=== PATIENT | male | born 1955 | race Caucasian/White ===

== ENCOUNTER 2020-02-16 15:50 | Inpatient (IN) | payer MEDICARE, OTHER, SELFPAY ==
[2020-02-16] VITALS (8 sets, daily range): BP systolic 93–123; BP diastolic 48–72; PULSE 93–101; RESP 18–22; TEMP 36.6–39.5; O2SAT 96–100; BMI 39.4
--- NOTE | ~2020-02-16 | XR_ITS ---
EXAMINATION: XR foot RT min 3V EXAM DATE: 02/16/2020 17:14 INDICATION: Wound on foot. Fever. TECHNIQUE: 3 projections of the right foot. Comparison is made to prior examination from 04/10/2019. FINDINGS: Again there is extensive mid and hind right foot neuropathic changes, Charcot's joint. The re is associated pes planus. There is large ulceration seen along the volar aspect of the foot. There is no osseous erosion of the undersurface of the mid foot to specifically suggest osteomyelitis. The re are no acute fractures identified. No radiopaque foreign bodies identified. IMPRESSION: 1. Right foot neuropathic joint. 2. Large ulceration. No osseous erosion to specifically suggest osteomyelitis. Reviewed, dictated and finalized at location A.
--- NOTE | 2020-02-16 16:58 | ED.EXTPRO ---
HPI - Extremity Problem General Chief complaint: Extremity Injury, Lower Stated complaint: possible cellulitis right lower foot Time Seen by Provider: 02/16/20 16:24 Source: patient Mode of arrival: ambulatory Limitations: no limitations History of Present Illness HPI Narrative: Patient is a 64-year-old male with history of diabetes and chronic plantar surface wound to the right foot that is been present for approximately 10 years. Patient reports onset of fever approximately 1-1/2 weeks ago. Patient has continued to have intermittent fever as high as 102 and 103 over this weekend. Patient notes erythema of the right foot and ankle. Patient has prior history of infection of this wound. He is chronically followed by a sorting and folding supervisor for his wound as well. Patient denies any cough or shortness of breath. MD Complaint: other (Right foot wound infection) Associated symptoms: fever Related Data Home Medications Medication Instructions Recorded Confirmed amlodipine BID 02/16/20 carvedilol BID 02/16/20 insulin glargine [Lantus U-100 35 unit SUBCUT HS 02/16/20 Insulin] sitagliptin-metformin [Janumet] tablet BID 02/16/20 valsartan-hydrochlorothiazide tablet DAILY 02/16/20 Allergies Allergy/AdvReac Type Severity Reaction Status Date / Time No Known Allergies Allergy Verified 02/16/20 16:47 Review of Systems Review of Systems: All systems reviewed & are unremarkable except as noted in HPI and below Constitutional: Constitutional: Reports fever(s) Respiratory: Respiratory: Denies cough and Denies dyspnea Gastrointestinal: Gastrointestinal: Denies nausea and Denies vomiting PMFSH Past Medical History Medical History Anemia of chronic disease Charcot foot due to diabetes mellitus Chronic wound of extremity CVA (cerebral vascular accident) Diabetic peripheral neuropathy Hepatitis C Hypertension Osteoarthritis Osteomyelitis Type 2 diabetes mellitus Surgical History Surgical History History of cataract surgery History of cholecystectomy History of fusion of cervical spine History of laparoscopic adjustable gastric banding History of total right hip replacement Family History Family History (Updated 10/30/17 @ 13:07 by DOCTOR UNKNOWN) Father Family history of lung cancer Other Cerebrovascular accident Diabetes mellitus Family history of allergic disorder Family history of arthritis Family history of cardiovascular disease Family history of kidney disease Family history of malignant neoplasm Hypertension Social History Social History Smoking status: Never smoker Alcohol intake: current Exam Const: General: cooperative, no acute distress and alert Nutritional Appearance: obese morbidly obese Orientation/consciousness: patient oriented x3 Limitations: no limitations HENMT: Mouth: Yes lip normal and Yes moist mucous membranes Resp: Effort & Inspection: normal respiratory effort Auscultation: clear to auscultation bilaterally Cardio: Rate: regular rate Rhythm: regular rhythm GI: GI Palp: Yes Soft to palpation and No Tenderness to palpation present (GI) Auscultation: normal bowel sounds Skin: General skin exam: normal color Wounds: wounds noted ulceration right plantar foot size (4 x 4 cm) and with surrounding erythema (Extending up right ankle) Neuro: General: patient oriented x3 Cognition (Neuro): normal cognition Speech: normal speech Extrem: General: normal to inspection, full ROM and no clubbing, cyanosis or edema Psych: Mental Status: mental status grossly normal Affect: normal affect Attitude: cooperative Course Course Emergency Course: Patient meeting criteria for sepsis. No evidence of shock. Patient hydrated with IV fluids in the emergency department and started on broad-spectrum IV ant
[2020-02-16 17:34] LABS: Hematocrit 31.2 % (42.0-52.0); Hemoglobin 10.5 g/dL (14.0-18.0); Mean Corpuscular HGB Conc 33.7 g/dl (32-36); Mean Corpuscular Hemoglobin 26.4 pg (26-34); Mean Corpuscular Volume 78.4 fl (80-100); Mean Platelet Volume 9.6 fl (7.4-10.4); Platelet Count Result 241 k/mm3 (150-375); Red Blood Count 3.98 M/mm3 (4.6-6.20); Red Cell Distribution Width 15.1 % (11.5-14.5); White Blood Count 16.5 K/mm3 (4.5-10.0)
[2020-02-16 17:44] LABS: Lactic Acid Reflex 2.4 mmol/L (0.7-2.1)
[2020-02-16 17:50] LABS: Alanine Aminotransferase 18 U/L (4-50); Albumin Level 3.5 g/dL (3.5-5.1); Alkaline Phosphatase 117 U/L (38-126); Aspartate Amino Transferase 28 U/L (17-59); Bilirubin,Total 0.8 mg/dL (0.2-1.3); Blood Urea Nitrogen 41 mg/dL (9-20); Carbon Dioxide 21 mmol/L (22-30); Chloride 94 mmol/L (98-107); Estimated CRCL calculation 40 ml/min; Estimated Glomerular Filt Rate 29; Glucose 228 mg/dL (75-110); Potassium 4.4 mmol/L (3.4-5.0); Sodium 127 mmol/L (137-145)
[2020-02-16 17:59] LABS: Erythrocyte Sedimentation Rate 133 mm/hr (0-20)
[2020-02-16 18:09] LABS: Anisocytosis 2+ (NORMAL); Band Neutrophils Percent 16 % (0-6); Lymphocytes Absolute Manual 0.33 K/mm3 (1.1-4.5); Monocytes Absolute Manual 0.66 K/mm3 (0.1-0.90); Monocytes Percent Manual 4 % (3-9); Neutrophils Absolute Manual 15.51 K/mm3 (1.3-6.7); Neutrophils Percent Manual 78 % (46-73); Platelet Estimate Adequate (Adequate); Total Cells Counted 100
[2020-02-16 18:32] LABS: CRP 34.4 mg/dL (<1.0)
[2020-02-16] MEDS: SODIUM CHLORIDE 0.9% IV 1,000 ML 999 ML IV CONT ×2 (19:30→22:57)
--- NOTE | 2020-02-16 20:27 | PC.NURSE ---
danielar faxed at 1949. rn unable to take report at this time
[2020-02-16 20:31] LABS: Reflex Lactic Acid Yes or No Add Lactic
[2020-02-16] MEDS: SODIUM CHLORIDE 0.9% IV 1,000 ML 150 ML IV CONT (21:06)
--- NOTE | 2020-02-16 21:19 | ADMGEN ---
This patient, Mathew Benitez, was admitted to Medical Room 344-01. Patient/family oriented to hospital policies and general routines including ID bracelet, bed and alarms, visiting hours, pain management, procedures, bathroom and other care routines, personal items, smoking policy, room service/diet, and visiting hours. Valuables list has been completed. Information on how to activate the Rapid Response Team has been discussed. Patient/Family are encouraged to report perceived risks to care and to ask questions if they do not understand what they are told or what they should do.
[2020-02-16 21:21] LABS: Lactic Acid 3.2 mmol/L (0.7-2.1)
--- NOTE | 2020-02-16 21:30 | PM.IMHP ---
H&P: HPI History of Present Illness Chief complaint: Suspected cellulitis of right lower extremity. Narrative: Mathew Benitez is a pleasant 63-year-old male with insulin-dependent diabetes, Charcot neuropathy of the right foot with chronic wound, hypertension, and several other comorbidities who presented to the emergency department earlier this afternoon as he suspects that he has cellulitis of the right lower extremity. He has a chronic wound on the plantar aspect of his right foot that has been present for approximately 10 years time. He is followed by a local employee benefits specialist, Dr. Fernandez, and last saw him a couple of weeks ago and at that time it sounds as though he had some debridement of the wound. Over the past 1 week, unfortunately, he has not been feeling well with erythema and pain about the right foot, when he typically has no pain there due to neuropathy. He has also been running fever for almost a weeks time, with a T-max of 103?. Yesterday he outlined the area of erythema, and tells me that it expanded by 2 inches overnight and thus he came in for evaluation. He also mentions a decrease in appetite. He denies cold and flu-like symptoms. No chest pain, shortness of breath, or cough. He denies nausea, vomiting, and diarrhea. No dysuria. No significant highs or lows with regards to his glucose. Review of Systems Review of Systems: Narrative: Twelve systems were reviewed with pertinent positives and negatives as per HPI. Except as documented, all other systems were reviewed and are negative. [facility] Past Medical History Medical History (Updated 02/16/20 @ 22:18 by Chula Vega PA-C) Anemia of chronic disease Charcot foot due to diabetes mellitus Right foot. Chronic wound of extremity Chronic right plantar diabetic foot ulcer, under the care of Jordin Fernandez DPM. CVA (cerebral vascular accident) with mild gait disturbance. Diabetic peripheral neuropathy Hepatitis C Completed treatment in 2017. Hypertension Insulin dependent type 2 diabetes mellitus Osteoarthritis Osteomyelitis Surgical History Surgical History (Updated 02/16/20 @ 22:11 by Chula Vega PA-C) History of cataract surgery History of cholecystectomy For gangrenous cholecystitis an abscess in October 2017. History of fusion of cervical spine History of laparoscopic adjustable gastric banding 2004. History of skin graft to right foot wound. History of total right hip replacement Family History Family History Father Family history of lung cancer Other Diabetes mellitus Family history of allergic disorder Family history of cardiovascular disease Family history of malignant neoplasm Hypertension Social History Social History (Updated 02/16/20 @ 22:12 by Chula Vega PA-C) Social History: The patient lives in his own home in [place]. He is a lifelong nonsmoker and denies alcohol abuse. He smokes marijuana on occasion. He designates his sister, Kendal Martinez, and his son Nhan Benitez as his surrogate decision makers and he wishes to be a full code. Smoking status: Never smoker Second hand tobacco smoke exposure: Yes Alcohol intake: current Drinks per week: 4 Substance use: current Substance use type: marijuana Gender identity (if verbalized by the patient): Male Spiritual care concerns: No Agree to blood products: Yes Meds Home Medications and Allergies Home Medications Medication Instructions Recorded Confirmed Type amlodipine BID 02/16/20 History carvedilol BID 02/16/20 History insulin glargine [Lantus U-100 35 unit SUBCUT HS 02/16/20 History Insulin] insulin glargine [Lantus U-100 35 unit SUBCUT HS 02/16/20 02/16/20 History Insulin] sitagliptin-metformin [Janumet] 1 tablet PO BID 02/16/20 02/16/20 History valsartan-hydrochlorothiazide tablet DAILY 02/16/20 History Allergies Allergy/AdvReac Type Severit
[2020-02-16] MEDS: ACETAMINOPHEN 325 MG TABLET 650 MG PO (21:51)
[2020-02-16 22:00] LABS: Glucose Point of Care 241 (65-105)
--- NOTE | 2020-02-16 22:35 | PC.NURSE ---
Patient urinated on himself in bed and is currently refusing to let staff clean him up or change his linens. The importance of clean and dry bedding for proper skin care was explained to the patient but he continues to refuse and wants to stay in his wet/dirty underwear.
[2020-02-16 23:15] LABS: Creatine Kinase 371 U/L (55-170)
[2020-02-16] MEDS: INSULIN GLARGINE (*BKC) 100 UNITS/ML 35 UNITS SUB-Q (23:17)
[2020-02-16 23:18] LABS: Blood Urea Nitrogen 43 mg/dL (9-20); Carbon Dioxide 20 mmol/L (22-30); Chloride 94 mmol/L (98-107); Estimated CRCL calculation 45 ml/min; Estimated Glomerular Filt Rate 34; Glucose 246 mg/dL (75-110); Potassium 4.3 mmol/L (3.4-5.0); Sodium 125 mmol/L (137-145)
[2020-02-16 23:30] LABS: Hemoglobin A1C 6.8 % (<5.7)
[2020-02-17] MEDS: SODIUM CHLORIDE 0.9% IV 1,000 ML 999 ML IV CONT (00:10)
[2020-02-17 00:33] VITALS: TEMP 37.8
[2020-02-17 03:48] VITALS: TEMP 37.3
[2020-02-17 04:00] VITALS: BP 100/57; PULSE 88; RESP 20; TEMP 37.5; O2SAT 100
[2020-02-17 05:53] LABS: Blood Urea Nitrogen 46 mg/dL (9-20); Calcium 7.8 mg/dL (8.4-10.2); Carbon Dioxide 22 mmol/L (22-30); Chloride 97 mmol/L (98-107); Estimated CRCL calculation 50 ml/min; Estimated Glomerular Filt Rate 38; Glucose 223 mg/dL (75-110); Lactic Acid 1.2 mmol/L (0.7-2.1); Magnesium 1.6 mg/dL (1.6-2.3); Phosphorus 3.7 mg/dL (2.5-4.5); Potassium 4.1 mmol/L (3.4-5.0); Sodium 127 mmol/L (137-145)
[2020-02-17 05:55] LABS: Basophils Absolute Auto 0.1 K/mm3 (0.0-0.1); Basophils Percent Auto 0.4 % (0.2-1.2); Hematocrit 28.7 % (42.0-52.0); Hemoglobin 9.3 g/dL (14.0-18.0); Immature Granulocyte Absolute 0.24 K/mm3 (0.00-0.031); Immature Granulocyte Percent A 1.2 % (0-0.5); Lymphocytes Absolute Auto 0.57 K/mm3 (0.9-3.2); Lymphocytes Percent Auto 2.9 % (18.3-44.2); Mean Corpuscular HGB Conc 32.4 g/dl (32-36); Mean Corpuscular Hemoglobin 26.2 pg (26-34); Mean Corpuscular Volume 80.8 fl (80-100); Mean Platelet Volume 10.1 fl (7.4-10.4); Monocytes Absolute Auto 1.3 K/mm3 (0.1-0.6); Monocytes Percent Auto 6.6 % (2.6-8.5); Neutrophils Absolute Auto 17.7 K/mm3 (1.3-6.7); Neutrophils Percent Auto 88.9 % (45.5-73.1); Platelet Count Result 233 k/mm3 (150-375); Red Blood Count 3.55 M/mm3 (4.6-6.20); Red Cell Distribution Width 15.3 % (11.5-14.5); White Blood Count 19.9 K/mm3 (4.5-10.0)
[2020-02-17] MEDS: SODIUM CHLORIDE 0.9% IV 1,000 ML 150 ML IV CONT ×2 (06:31→16:15)
[2020-02-17 07:51] LABS: Add Urine Microscopic? YES; Amorphous Sediment Urine Few; Appearance Urine Cloudy (Clear); Bacteria Urine Trace /hpf; Bilirubin Urine Negative (Negative); Blood Urine Negative (Negative); Color Urine Amber (Yellow); Glucose Urine UA 1+ mg/dL (Negative); Ketones Urine Trace mg/dL (Negative); Leukocyte Esterase Ur Trace LEU/UL (Negative); Mucus Urine Rare /lpf; Nitrate Urine Negative (Negative); Protein Urine 1+ mg/dL (Negative); Specific Grav Ur 1.018 (1.001-1.035); Squamous Epithelial Cell Urine Occasional /hpf (Few); WBC Urine 0-3 /hpf
[2020-02-17 07:57] LABS: Glucose Point of Care 237 (65-105)
[2020-02-17] MEDS: INSULIN ASPART (*BKC) 100 UNITS/ML SUB-Q ×3 (08:03→17:10)
[2020-02-17] MEDS: INSULIN GLARGINE (*BKC) 100 UNITS/ML 45 UNITS SUB-Q (08:04)
[2020-02-17] MEDS: ENOXAPARIN 40 MG/0.4 ML SYRINGE SUB-Q (08:07)
[2020-02-17] MEDS: SILVERGEL (ELTA) 45 ML 1 APPLIC TOPICAL (09:28)
[2020-02-17] MEDS: ACETAMINOPHEN 325 MG TABLET 650 MG PO (11:29)
[2020-02-17 11:42] LABS: Glucose Point of Care 237 (65-105)
[2020-02-17 14:00] VITALS: BP 140/87; PULSE 107; RESP 20; TEMP 37.1; O2SAT 95
--- NOTE | 2020-02-17 14:02 | PM.IMPN ---
Progress Note: A&P Assessment and Plan (1) Sepsis: Qualifiers: Sepsis acute organ dysfunction status: without acute organ dysfunction Sepsis type: sepsis due to unspecified organism Qualified Code(s): A41.9 - Sepsis, unspecified organism Code(s): A41.9 - Sepsis, unspecified organism Status: Acute Assessment and Plan: Criteria met on admission. Result of diabetic foot ulcer /cellulitis. Still with slight fever. WBC is slightly higher at 19.9 today. 1 of 2 blood cultures now growing Gram-positive coccobacilli. Preliminary wound culture with mixed annalise. Will continue IV vancomycin and imipenem per antibiotic stewardship recommendations. Will adjust once culture results are final if needed. Will continue to monitor. Continue IV fluids but decrease rate. 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 involvement without evidence of necrosis Code(s): E11.621 - Type 2 diabetes mellitus with foot ulcer; L97.509 - Non-pressure chronic ulcer of other part of unspecified foot with unspecified severity Status: Acute Assessment and Plan: No evidence of osteomyelitis on x-ray. Will continue current wound care. Await final wound cultures. If not improving, will consult his regular senior accounts payable specialist, Dr. Fernandez. Continue IV antibiotics as noted above. (3) Cellulitis of right foot: Code(s): L03.115 - Cellulitis of right lower limb Status: Acute Assessment and Plan: Despite WBC Azar, appears to be improving otherwise. Continue IV antibiotics as noted above. Will adjust if needed. (4) Insulin dependent type 2 diabetes mellitus: Code(s): E11.9 - Type 2 diabetes mellitus without complications; Z79.4 - senior living (current) use of insulin Status: Acute Assessment and Plan: Hemoglobin A1c 6.8. Glucose reviewed on 02/17/2020 with readings in 200s. Probably elevated due to cellulitis. Will advance evening Lantus today. Continue sliding scale insulin. Will continue to monitor and adjust treatment as needed. (5) Acute kidney injury: Code(s): N17.9 - Acute kidney failure, unspecified Status: Acute Assessment and Plan: Possibly result of dehydration and/or ATN from sepsis. Creatinine is improved to 1.80 today. Continue IV fluids but decrease rate as noted above. Will continue to monitor. (6) Hyponatremia: Code(s): E87.1 - Hypo-osmolality and hyponatremia Status: Acute Assessment and Plan: Sodium level still low but stable at 127. Will continue to monitor with home diuretic on hold. (7) Hypertension: Qualifiers: Hypertension type: essential hypertension Qualified Code(s): I10 - Essential (primary) hypertension Code(s): I10 - Essential (primary) hypertension Status: Acute Assessment and Plan: Blood pressure reviewed on 02/17/2020 and now improved. Will continue to hold home amlodipine, carvedilol, valsartan and HCTZ today. Reassess tomorrow. May need to restart some of his medications tomorrow avoiding nephrotoxic agents. Continue to monitor. (8) DVT prophylaxis: Code(s): Z29.9 - Encounter for prophylactic measures, unspecified Status: Acute Assessment and Plan: Lovenox. Time Spent With Patient Time with patient: 15 - 25 minutes Subjective Date/time seen: 02/17/20 14:02 Interval history: Date of Service: 02/17/2020. Admitted with sepsis, right foot diabetic ulcer. Does have pain in right foot. No nausea or vomiting. No chest pain. No shortness of breath. Review of Systems Constitutional: Constitutional: Reports fever(s) ENT: Denies dysphag
[2020-02-17 17:07] LABS: Glucose Point of Care 205 (65-105)
[2020-02-17 20:18] VITALS: BP 119/57; PULSE 80; RESP 18; TEMP 36.8; O2SAT 95
[2020-02-17] MEDS: INSULIN GLARGINE (*BKC) 100 UNITS/ML 35 UNITS SUB-Q (20:21)
[2020-02-17 20:24] LABS: Glucose Point of Care 227 (65-105)
[2020-02-18] MEDS: SODIUM CHLORIDE 0.9% IV 1,000 ML 100 ML IV CONT ×2 (02:23→16:32)
[2020-02-18 05:49] LABS: Blood Urea Nitrogen 37 mg/dL (9-20); Calcium 7.9 mg/dL (8.4-10.2); Carbon Dioxide 23 mmol/L (22-30); Chloride 100 mmol/L (98-107); Estimated CRCL calculation 74 ml/min; Estimated Glomerular Filt Rate > 60; Glucose 195 mg/dL (75-110); Potassium 3.4 mmol/L (3.4-5.0); Sodium 130 mmol/L (137-145)
[2020-02-18 05:58] LABS: Hematocrit 28.1 % (42.0-52.0); Hemoglobin 9.2 g/dL (14.0-18.0); Mean Corpuscular HGB Conc 32.7 g/dl (32-36); Mean Corpuscular Hemoglobin 25.7 pg (26-34); Mean Corpuscular Volume 78.5 fl (80-100); Mean Platelet Volume 9.9 fl (7.4-10.4); Platelet Count Result 213 k/mm3 (150-375); Red Blood Count 3.58 M/mm3 (4.6-6.20); Red Cell Distribution Width 15.4 % (11.5-14.5); White Blood Count 11.3 K/mm3 (4.5-10.0)
[2020-02-18 06:00] VITALS: BP 129/59; PULSE 80; RESP 18; TEMP 36.3; O2SAT 97
[2020-02-18] MEDS: ENOXAPARIN 40 MG/0.4 ML SYRINGE SUB-Q (07:32)
[2020-02-18] MEDS: INSULIN ASPART (*BKC) 100 UNITS/ML SUB-Q ×2 (07:32→11:38)
[2020-02-18 07:39] VITALS: PULSE 80; RESP 18; O2SAT 97
[2020-02-18 07:46] LABS: Glucose Point of Care 210 (65-105)
[2020-02-18] MEDS: INSULIN GLARGINE (*BKC) 100 UNITS/ML 45 UNITS SUB-Q ×2 (08:30→21:37)
[2020-02-18] MEDS: SILVERGEL (ELTA) 45 ML 1 APPLIC TOPICAL (10:22)
[2020-02-18 11:32] LABS: Glucose Point of Care 260 (65-105)
--- NOTE | 2020-02-18 14:17 | PM.IMPN ---
Progress Note: A&P Assessment and Plan (1) Sepsis: Qualifiers: Sepsis acute organ dysfunction status: without acute organ dysfunction Sepsis type: sepsis due to unspecified organism Qualified Code(s): A41.9 - Sepsis, unspecified organism Code(s): A41.9 - Sepsis, unspecified organism Status: Acute Assessment and Plan: Criteria met on admission. Result of diabetic foot ulcer /cellulitis. No longer with fever. WBC has improved to 11.3 today. Blood cultures times to now positive for pasteurella multocida. Will consult infectious disease regarding guidance for antibiotic treatment. In the meantime, will continue IV vancomycin and imipenem. Continue IV fluids today but decrease rate again. Will continue to monitor. 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 involvement without evidence of necrosis Code(s): E11.621 - Type 2 diabetes mellitus with foot ulcer; L97.509 - Non-pressure chronic ulcer of other part of unspecified foot with unspecified severity Status: Acute Assessment and Plan: No evidence of osteomyelitis on x-ray. Will continue current wound care. Await final wound cultures. If not improving, will consult his regular rail washer, Dr. Fernandez. Continue IV antibiotics as noted above. (3) Cellulitis of right foot: Code(s): L03.115 - Cellulitis of right lower limb Status: Acute Assessment and Plan: Improving. Continue IV antibiotics as noted above. Will adjust if needed. (4) Insulin dependent type 2 diabetes mellitus: Code(s): E11.9 - Type 2 diabetes mellitus without complications; Z79.4 - middle or intermediate school principal (current) use of insulin Status: Acute Assessment and Plan: Hemoglobin A1c 6.8. Glucose reviewed on 02/18/2020 with readings mostly still in 200s with some below. Probably elevated due to cellulitis. Will advance evening Lantus again today. Continue same morning dose of Lantus today. Continue sliding scale insulin. Will continue to monitor and adjust treatment as needed. (5) Acute kidney injury: Code(s): N17.9 - Acute kidney failure, unspecified Status: Acute Assessment and Plan: Possibly result of dehydration and/or ATN from sepsis. Creatinine is improved to 1.20 today. Continue IV fluids but decrease rate as noted above. Will continue to monitor. (6) Hypertension: Qualifiers: Hypertension type: essential hypertension Qualified Code(s): I10 - Essential (primary) hypertension Code(s): I10 - Essential (primary) hypertension Status: Acute Assessment and Plan: Blood pressure reviewed on 02/18/2020 and now beginning to increase. Home amlodipine, carvedilol, valsartan and HCTZ have been on hold due to low blood pressure on admission. Will restart amlodipine and carvedilol but continue to hold valsartan and HCTZ. Will continue to monitor and adjust as needed. (7) Hyponatremia: Code(s): E87.1 - Hypo-osmolality and hyponatremia Status: Acute Assessment and Plan: Sodium level improved to 130 today. Will continue to monitor. (8) DVT prophylaxis: Code(s): Z29.9 - Encounter for prophylactic measures, unspecified Status: Acute Assessment and Plan: Lovenox. Time Spent With Patient Time with patient: 15 - 25 minutes Subjective Date/time seen: 02/18/20 14:17 Interval history: Date of Service: 02/18/2020. Admitted with sepsis, right foot diabetic ulcer. Sleeping but easily awakened. Does still have pain in right foot as well as left foot but has known neuropathy. Appetite better today. No nausea or vomiting. No chest pain. N
[2020-02-18 14:20] VITALS: BP 145/64; PULSE 87; RESP 18; TEMP 36.8; O2SAT 96
[2020-02-18 16:25] LABS: Glucose Point of Care 184 (65-105)
[2020-02-18 18:34] VITALS: PULSE 80
[2020-02-18] MEDS: carvediloL 25 MG TABLET PO (18:34)
[2020-02-18] MEDS: AMLODIPINE BESYLATE 5 MG TABLET PO (18:34)
[2020-02-18 21:06] VITALS: BP 131/71; PULSE 84; RESP 17; TEMP 37.3; O2SAT 97
[2020-02-18 22:54] LABS: Glucose Point of Care 283 (65-105)
[2020-02-19] VITALS (7 sets, daily range): BP systolic 134–136; BP diastolic 60–80; PULSE 72–81; RESP 18; TEMP 37.1–37.5; O2SAT 93–100
[2020-02-19] MEDS: SODIUM CHLORIDE 0.9% IV 1,000 ML 75 ML IV CONT (05:24)
[2020-02-19 06:37] LABS: Hematocrit 29.7 % (42.0-52.0); Hemoglobin 9.9 g/dL (14.0-18.0); Mean Corpuscular HGB Conc 33.3 g/dl (32-36); Mean Corpuscular Hemoglobin 26.2 pg (26-34); Mean Corpuscular Volume 78.6 fl (80-100); Mean Platelet Volume 9.3 fl (7.4-10.4); Platelet Count Result 253 k/mm3 (150-375); Red Blood Count 3.78 M/mm3 (4.6-6.20); Red Cell Distribution Width 15.5 % (11.5-14.5); White Blood Count 10.3 K/mm3 (4.5-10.0)
[2020-02-19 06:55] LABS: Blood Urea Nitrogen 22 mg/dL (9-20); Calcium 7.9 mg/dL (8.4-10.2); Carbon Dioxide 24 mmol/L (22-30); Chloride 102 mmol/L (98-107); Estimated CRCL calculation 100 ml/min; Estimated Glomerular Filt Rate > 60; Glucose 170 mg/dL (75-110); Potassium 3.4 mmol/L (3.4-5.0); Sodium 133 mmol/L (137-145)
[2020-02-19 08:08] LABS: Glucose Point of Care 167 (65-105)
[2020-02-19] MEDS: carvediloL 25 MG TABLET PO ×2 (09:45→16:50)
[2020-02-19] MEDS: AMLODIPINE BESYLATE 5 MG TABLET PO ×2 (09:45→16:51)
[2020-02-19] MEDS: ENOXAPARIN 40 MG/0.4 ML SYRINGE SUB-Q (09:46)
[2020-02-19] MEDS: INSULIN GLARGINE (*BKC) 100 UNITS/ML 45 UNITS SUB-Q ×2 (10:22→20:23)
[2020-02-19] MEDS: SILVERGEL (ELTA) 45 ML 1 APPLIC TOPICAL (10:24)
[2020-02-19 12:20] LABS: Glucose Point of Care 185 (65-105)
--- NOTE | 2020-02-19 13:49 | PM.IMPN ---
Progress Note: A&P Assessment and Plan (1) Sepsis: Qualifiers: Sepsis acute organ dysfunction status: without acute organ dysfunction Sepsis type: sepsis due to unspecified organism Qualified Code(s): A41.9 - Sepsis, unspecified organism Code(s): A41.9 - Sepsis, unspecified organism Status: Acute Assessment and Plan: Criteria met on admission. Result of diabetic foot ulcer /cellulitis. No fever at this point but still having chills. WBC slightly better at 10.3. Infectious Disease consulted as result of blood culture x 2 positive for pasteurella multocida. Wound culture also now growing pasteurella multocida. Remains on IV imipenem with IV vancomycin discontinued per ID. Will continue to monitor. 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 involvement without evidence of necrosis Code(s): E11.621 - Type 2 diabetes mellitus with foot ulcer; L97.509 - Non-pressure chronic ulcer of other part of unspecified foot with unspecified severity Status: Acute Assessment and Plan: No evidence of osteomyelitis on x-ray. Will continue current wound care. Final wound culture as noted above. Continue IV antibiotics. Does see Dr. Fernandez for podiatry as an outpatient. (3) Cellulitis of right foot: Code(s): L03.115 - Cellulitis of right lower limb Status: Acute Assessment and Plan: Has been improving. Continue IV imipenem as noted above. (4) Insulin dependent type 2 diabetes mellitus: Code(s): E11.9 - Type 2 diabetes mellitus without complications; Z79.4 - watermelon harvesting supervisor (current) use of insulin Status: Acute Assessment and Plan: Hemoglobin A1c 6.8. Glucose reviewed on 02/19/2020 with readings now staying below 200. Will continue current split dose of Lantus. Continue sliding scale insulin. Will continue to monitor and adjust treatment as needed. (5) Acute kidney injury: Code(s): N17.9 - Acute kidney failure, unspecified Status: Resolved Assessment and Plan: Result of dehydration and/or ATN from sepsis. Creatinine has now returned to normal at 0.90 today. Oral intake is adequate. Will discontinue IV fluids. Will continue to monitor. (6) Hypertension: Qualifiers: Hypertension type: essential hypertension Qualified Code(s): I10 - Essential (primary) hypertension Code(s): I10 - Essential (primary) hypertension Status: Acute Assessment and Plan: Blood pressure reviewed on 02/19/2020 and stable in normal range. Amlodipine and carvedilol restarted. Will also try restarting valsartan with creatinine normal. Will leave HCTZ on hold. Will continue to monitor and adjust treatment as needed. (7) Hyponatremia: Code(s): E87.1 - Hypo-osmolality and hyponatremia Status: Acute Assessment and Plan: Sodium level improved again up to 133 today. Will continue to monitor. (8) DVT prophylaxis: Code(s): Z29.9 - Encounter for prophylactic measures, unspecified Status: Acute Assessment and Plan: Lovenox. Time Spent With Patient Time with patient: 15 - 25 minutes Subjective Date/time seen: 02/19/20 13:49 Interval history: Date of Service: 02/19/2020. Admitted with sepsis, right foot diabetic ulcer. Patient awake this afternoon. Reports had a rough morning. Describes having chills as well as coughing as result of nausea. No chest pain. No shortness of breath. Right foot pain has improved. Reports always has edema in his right leg. Review of Systems Constitutional: Constitutional: Reports chills ENT: Denies dysphagia Cardiovascular: Cardiovascular: Den
[2020-02-19] MEDS: VALSARTAN 80 MG TABLET PO (15:37)
[2020-02-19 16:51] LABS: Glucose Point of Care 223 (65-105)
[2020-02-19] MEDS: INSULIN ASPART (*BKC) 100 UNITS/ML SUB-Q (16:52)
[2020-02-19 20:41] LABS: Glucose Point of Care 216 (65-105)
[2020-02-20] VITALS (7 sets, daily range): BP systolic 111–136; BP diastolic 58–72; PULSE 72–84; RESP 18–20; TEMP 36.7–37.8; O2SAT 95–97
[2020-02-20 06:13] LABS: Hematocrit 28.4 % (42.0-52.0); Hemoglobin 9.1 g/dL (14.0-18.0); Mean Corpuscular Hemoglobin 25.8 pg (26-34); Mean Corpuscular Volume 80.5 fl (80-100); Mean Platelet Volume 9.9 fl (7.4-10.4); Platelet Count Result 231 k/mm3 (150-375); Red Blood Count 3.53 M/mm3 (4.6-6.20); Red Cell Distribution Width 15.6 % (11.5-14.5)
[2020-02-20 06:25] LABS: Blood Urea Nitrogen 17 mg/dL (9-20); Carbon Dioxide 25 mmol/L (22-30); Chloride 101 mmol/L (98-107); Estimated CRCL calculation 110 ml/min; Estimated Glomerular Filt Rate > 60; Glucose 156 mg/dL (75-110); Sodium 133 mmol/L (137-145)
[2020-02-20 08:00] LABS: Glucose Point of Care 145 (65-105)
[2020-02-20] MEDS: carvediloL 25 MG TABLET PO ×2 (08:10→17:15)
[2020-02-20] MEDS: POTASSIUM CHLORIDE 20 MEQ TABLET 40 MEQ PO (08:10)
[2020-02-20] MEDS: AMLODIPINE BESYLATE 5 MG TABLET PO ×2 (08:11→17:15)
[2020-02-20] MEDS: VALSARTAN 80 MG TABLET PO (08:11)
[2020-02-20] MEDS: SILVERGEL (ELTA) 45 ML 1 APPLIC TOPICAL (08:12)
[2020-02-20] MEDS: ENOXAPARIN 40 MG/0.4 ML SYRINGE SUB-Q (09:17)
[2020-02-20] MEDS: INSULIN GLARGINE (*BKC) 100 UNITS/ML 45 UNITS SUB-Q ×2 (09:18→21:02)
--- NOTE | 2020-02-20 09:25 | WPDINFPN2 ---
Progress Note: A&P Assessment and Plan (1) Cellulitis of right foot: Code(s): L03.115 - Cellulitis of right lower limb Status: Acute Assessment and Plan: 1. Cellulitis of R foot with bacteremia and infection, due to pasturella. 2. Charcot foot, also (by his description) chronic osteomyelitis 3. DM REC Ampicillin #1 (antibiotic # 5), repeat CBC, and if no new events by tomorrow change to oral, through 02/28. F/U with [place] DPM Subjective Date/time seen: 02/20/20 09:25 Objective Data Vital Signs Vital Signs: Vital Signs - 24 hr 02/19/20 09:45 02/19/20 09:46 02/19/20 14:00 Temperature 37.1 C Pulse Rate 80 80 72 Respiratory Rate 18 18 Blood Pressure 136/80 Pulse Oximetry 96 100 02/19/20 16:50 02/19/20 20:00 02/19/20 22:00 Temperature 37.5 C Pulse Rate 76 81 81 Respiratory Rate 18 18 Blood Pressure 135/60 Pulse Oximetry 93 93 02/20/20 06:00 02/20/20 08:10 Temperature 36.7 C Pulse Rate 72 72 Respiratory Rate 20 Blood Pressure 134/63 Pulse Oximetry 95 Intake/Output Intake/Output: Intake & Output 02/17/20 02/18/20 02/19/20 02/20/20 23:59 23:59 23:59 23:59 Intake Total 6050 3375 4317 600 Output Total 1000 2200 2775 1000 Balance 5050 1175 1542 -400 Meds/Results Medications: Active Medications Generic Name Dose Route Start Last Admin Trade Name Freq PRN Reason Stop Dose Admin Acetaminophen 650 mg 02/16/20 18:11 02/17/20 11:29 Tylenol Tablet PO 650 mg Q4H PRN Administration Mild Pain (1-3) or Fever Hydrocodone Bitart/Acetaminophen 1 tab 02/16/20 23:09 02/19/20 20:22 Cory 5-325 Mg PO 1 tab Q6H PRN Administration Pain Rated 4-6 Amlodipine Besylate 5 mg 02/18/20 17:40 02/20/20 08:11 Norvasc PO 5 mg BID KJ Administration Carvedilol 25 mg 02/18/20 17:40 02/20/20 08:10 Coreg PO 25 mg BID KJ Administration Dextrose 12.5 gm 02/16/20 22:28 Dextrose 50% Syringe IV PUSH PRN PRN Hypoglycemia Protocol Enoxaparin Sodium 40 mg 02/17/20 09:00 02/19/20 09:46 Lovenox SUB-Q 40 mg DAILY KJ Administration Glucagon 1 mg 02/16/20 22:28 Glucagon For Inj IM PRN PRN Hypoglycemia Protocol Glucose 15 gm 02/16/20 22:28 Glutose 15 PO PRN PRN Hypoglycemia Protocol Imipenem/Cilastatin Sodium 500 mg in 100 mls @ 300 mls/hr 02/17/20 01:00 02/20/20 02:22 Primaxin 500 Mg/D5w 100 Ml IVPB Infused Q8H KJ Infusion Dextrose 1,000 mls @ 100 mls/hr 02/16/20 22:28 Dextrose 5% 1,000 Ml IVPB PRN PRN Hypoglycemia Protocol Insulin Aspart 4 - 8 units 02/17/20 08:00 02/20/20 08:05 Novolog SUB-Q Not Given TIDWM KJ Protocol Insulin Glargine 45 units 02/17/20 09:00 02/19/20 10:22 Lantus SUB-Q 45 units QAM KJ Administration Insulin Glargine 45 units 02/18/20 17:44 02/19/20 20:23 Lantus SUB-Q 45 units HS KJ Administration Silver Nitrate 1 applic 02/17/20 09:00 02/20/20 08:12 Silvergel TOPICAL 1 applic DAILY KJ Administration Valsartan 80 mg 02/19/20 09:00 02/20/20 08:11 Diovan PO 80 mg DAILY KJ Administration Radiology Results: ITS Impressions Foot X-Ray 02/16/20 17:18 IMPRESSION: 1. Right foot neuropathic joint. 2. Large ulceration. No osseous erosion to specifically suggest osteomyelitis. Labs Labs: Laboratory Results - last 24 hr 02/19/20 02/19/20 02/19/20 12:08 16:48 20:26 WBC RBC Hgb Hct MCV MCH MCHC RDW Plt Count MPV Sodium Potassium Chloride Carbon Dioxide BUN Creatinine Estim Creat Clear Calc Estimated GFR Glucose POC Capillary Glucose 185 H 223 H 216 H Calcium 02/20/20 02/20/20 02/20/20 05:46 05:46 07:54 WBC 8.0 RBC 3.53 L Hgb 9.1 L Hct 28.4 L MCV 80.5 MCH 25.8 L MCHC 32.0 RDW 15.6 H Plt Count 231 MPV 9.9
[2020-02-20 11:53] LABS: Glucose Point of Care 227 (65-105)
[2020-02-20] MEDS: INSULIN ASPART (*BKC) 100 UNITS/ML SUB-Q ×2 (11:57→17:16)
[2020-02-20] MEDS: AMPICILLIN 2 GM/NS 100 ML 2 GM/100 ML BAG IVPB ×3 (12:16→23:53)
--- NOTE | 2020-02-20 13:28 | PM.IMPN ---
Progress Note: A&P Assessment and Plan (1) Sepsis: Qualifiers: Sepsis acute organ dysfunction status: without acute organ dysfunction Sepsis type: sepsis due to unspecified organism Qualified Code(s): A41.9 - Sepsis, unspecified organism Code(s): A41.9 - Sepsis, unspecified organism Status: Acute Assessment and Plan: Criteria met on admission. Result of diabetic foot ulcer /cellulitis. No further fever. WBC is now normal at 8.0 today. Infectious disease consulted and appreciate input. Blood culture x 2 positive for pasteurella multocida. Wound culture also now growing pasteurella multocida. Initially was started on IV vancomycin which was discontinued on 02/18/2020 per Infectious Disease. IV imipenem discontinued today with patient transition to IV ampicillin for additional 24 hour treatment per Infectious Disease. If no adverse events by tomorrow, anticipate transition to oral ampicillin to complete a 14 day course of treatment currently at day 5. Will reassess tomorrow with possible discharge. 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 involvement without evidence of necrosis Code(s): E11.621 - Type 2 diabetes mellitus with foot ulcer; L97.509 - Non-pressure chronic ulcer of other part of unspecified foot with unspecified severity Status: Acute Assessment and Plan: No evidence of osteomyelitis on x-ray. Will continue current wound care. Final wound culture as noted above. Now on IV ampicillin as noted above with plan to transition to oral ampicillin at discharge. Will need to follow-up with Dr. Fernandez, his regular power operator, after discharge. (3) Cellulitis of right foot: Code(s): L03.115 - Cellulitis of right lower limb Status: Acute Assessment and Plan: Improved with IV antibiotics. Now on IV ampicillin as noted above. (4) Insulin dependent type 2 diabetes mellitus: Code(s): E11.9 - Type 2 diabetes mellitus without complications; Z79.4 - ferry terminal supervisor (current) use of insulin Status: Acute Assessment and Plan: Hemoglobin A1c 6.8. Glucose reviewed on 02/20/2020 and now acceptable. Will continue current split dose of Lantus. Continue sliding scale insulin. Will continue to monitor and adjust treatment as needed. (5) Hypokalemia: Code(s): E87.6 - Hypokalemia Status: Acute Assessment and Plan: Potassium 3.0 today with oral replacement given. Will continue to monitor. Replace as needed. (6) Hypertension: Qualifiers: Hypertension type: essential hypertension Qualified Code(s): I10 - Essential (primary) hypertension Code(s): I10 - Essential (primary) hypertension Status: Acute Assessment and Plan: Blood pressure reviewed on 02/20/2020 and remains stable. Will continue current amlodipine, carvedilol and valsartan. Continue to hold HCTZ. Will continue to monitor. Adjust treatment as needed. (7) Acute kidney injury: Code(s): N17.9 - Acute kidney failure, unspecified Status: Resolved Assessment and Plan: Result of dehydration and/or ATN from sepsis. Creatinine remains normal at 0.80 today. Will continue to monitor. (8) Hyponatremia: Code(s): E87.1 - Hypo-osmolality and hyponatremia Status: Acute Assessment and Plan: Sodium level stable at 133 today. Will monitor. (9) DVT prophylaxis: Code(s): Z29.9 - Encounter for prophylactic measures, unspecified Status: Acute Assessment and Plan: Lovenox. Time Spent With Patient Time with patient: 15 - 25 minutes Subjective Date/time seen: 02/20/20 13:28 Interval
--- NOTE | 2020-02-20 14:36 | CONS_ITS ---
DATE OF CONSULTATION: 02/20/2020 REASON FOR CONSULTATION: Positive blood culture. HISTORY OF PRESENT ILLNESS: The patient is a 64-year-old male who has longstanding diabetes. He has had a right plantar foot ulcer for some 10 years and a left plantar first toe ulcer for about last 5 years. Both of them have been static in size. He has received regular followup with Dr. Fernandez and has had multiple x-rays and MRIs of his right foot by description. He reports by his own understanding chronic osteomyelitis of the right mid foot. There has been regular drainage, not worse in the right foot ulcer and he has Charcot deformities bilaterally. He was in his usual state of health until about 10 days before admission when he developed a single episode of fever. He was admitted to the hospital on the with 3 days of recurrent and persistent fever. He also had increased edema of the foot. He has chronic redness over the medial ankle. Upon admission here, he was given imipenem and vancomycin with the latter being stopped yesterday and consultation now requested. He does have a cat at home, which has bitten him at least once on the right hand. He was on doxycycline for 7 to 10 days, beginning 01/01/2020 for periungual infection, left 3rd finger, symptomatic resolution. No other recent antibiotics. No immunosuppressants. No trauma to the right foot nor the left toe. He has no vascular compromise. He has had several superficial injuries from abrasions such as hitting his right cintron against a trailer hitch. ALLERGIES: NONE KNOWN. PRESENT MEDICATIONS: List reviewed. No immunosuppressants. HABITS: Every other day alcohol and marijuana. Has never smoked tobacco. PAST MEDICAL HISTORY: In addition to the above, diabetes mellitus with A1c last month in the 6% range. Also, anemia, chronic inflammation, previous stroke, peripheral neuropathy, hepatitis C, hypertension, osteoarthritis, cholecystectomy, C-spine fusion, laparoscopic banding of the stomach, right total hip arthroplasty, cataract surgery. FAMILY HISTORY: Diabetes, heart disease, cancer. 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 His girlfriend enjoys watching live music and lives locally. REVIEW OF SYSTEMS: Nausea, generalized weakness and several days prior to admission, edema. 14-point review otherwise negative. PHYSICAL EXAMINATION: GENERAL: This is a middle-aged male, who appears actual age. No acute distress. VITAL SIGNS: On arrival here, he was afebrile, but temperature jena several hours later to 39.5, he has been afebrile since, 134/63, 72, 20, 95% room air. SKIN: Several abrasions. No evidence of cellulitis over the left 3rd finger nor elsewhere except for the foot as noted below. Skin is warm and dry. No rashes. NODES: He has no cervical adenopathy. EENT: Conjunctivae are normal. Pupils equal, round, and reactive to light. Oropharynx, oral mucosa normal. NECK: No meningismus, mass or thyromegaly. LUNGS: Clear to auscultation and percussion. CHEST: Equal expansion. Normal AP diameter. No indwelling vascular devices. CARDIAC: Regular rate and rhythm. No murmur, gallop, or rub. Popliteal, dorsalis pedis pulses 2+. ABDOMEN: Morbidly obese, nontender. No mass. No organomegaly. EXTREMITIES: On the left, he has a 2 cm neurotrophic ulcer, plantar 1st toe. On the right, he has a 4 cm also with exposed muscle. No exposed bone centered in the area of the distal 3rd metatarsal shaft. There is some scant brown drainage on the dressing, but no purulence expressible currently. He has erythema over the medial ankle and the medial hindfoot (chronic per patient). He has Charcot deformities bilaterally, worse on the right. LABORATORY DATA: Blood cultures 2/2 sets. Yahir
[2020-02-20 16:44] LABS: Glucose Point of Care 216 (65-105)
[2020-02-20 21:32] LABS: Glucose Point of Care 153 (65-105)
[2020-02-21] MEDS: AMPICILLIN 2 GM/NS 100 ML 2 GM/100 ML BAG IVPB (05:49)
[2020-02-21 05:56] LABS: Albumin Level 2.8 g/dL (3.5-5.1); Blood Urea Nitrogen 13 mg/dL (9-20); Carbon Dioxide 28 mmol/L (22-30); Chloride 101 mmol/L (98-107); Estimated CRCL calculation 110 ml/min; Estimated Glomerular Filt Rate > 60; Glucose 71 mg/dL (75-110); Phosphorus 3.4 mg/dL (2.5-4.5); Sodium 136 mmol/L (137-145)
[2020-02-21 06:00] VITALS: BP 146/59; PULSE 75; RESP 20; TEMP 37.1; O2SAT 95
[2020-02-21 06:01] LABS: Hematocrit 28.7 % (42.0-52.0); Hemoglobin 9.4 g/dL (14.0-18.0); Mean Corpuscular HGB Conc 32.8 g/dl (32-36); Mean Corpuscular Hemoglobin 25.7 pg (26-34); Mean Corpuscular Volume 78.4 fl (80-100); Mean Platelet Volume 9.8 fl (7.4-10.4); Platelet Count Result 311 k/mm3 (150-375); Red Blood Count 3.66 M/mm3 (4.6-6.20); Red Cell Distribution Width 15.1 % (11.5-14.5); White Blood Count 8.2 K/mm3 (4.5-10.0)
[2020-02-21 07:50] LABS: Glucose Point of Care 62 (65-105)
--- NOTE | 2020-02-21 07:51 | PC.NURSE ---
Pt starting to eat breakfast. Sugar at 62. Will recheck sugar once pt eats some of his breakfast.
[2020-02-21] MEDS: ENOXAPARIN 40 MG/0.4 ML SYRINGE SUB-Q (08:17)
[2020-02-21] MEDS: VALSARTAN 80 MG TABLET PO (08:17)
[2020-02-21] MEDS: AMLODIPINE BESYLATE 5 MG TABLET PO (08:17)
[2020-02-21 08:18] VITALS: PULSE 78
[2020-02-21] MEDS: carvediloL 25 MG TABLET PO (08:18)
[2020-02-21] MEDS: SILVERGEL (ELTA) 45 ML 1 APPLIC TOPICAL (08:19)
[2020-02-21] MEDS: INSULIN GLARGINE (*BKC) 100 UNITS/ML 45 UNITS SUB-Q (08:21)
[2020-02-21 08:23] LABS: Glucose Point of Care 111 (65-105)
[2020-02-21 11:40] LABS: Glucose Point of Care 225 (65-105)
--- NOTE | 2020-02-21 12:07 | PM.DS ---
DS: Diagnosis Admitting Diagnosis Admitting Diagnosis: Sepsis, unspecified organism Discharge Diagnosis (1) Sepsis: Qualifiers: Sepsis acute organ dysfunction status: without acute organ dysfunction Sepsis type: sepsis due to unspecified organism Qualified Code(s): A41.9 - Sepsis, unspecified organism Code(s): A41.9 - Sepsis, unspecified organism Status: Acute Assessment and Plan: Criteria met on admission. Result of diabetic foot ulcer /cellulitis. No further fever. WBC is now normal at 8.0 today. Infectious disease consulted and appreciate input. Blood culture x 2 positive for pasteurella multocida. Wound culture also now growing pasteurella multocida. Initially was started on IV vancomycin which was discontinued on 02/18/2020 per Infectious Disease. IV imipenem discontinued today with patient transition to IV ampicillin for additional 24 hour treatment per Infectious Disease. If no adverse events by tomorrow, anticipate transition to oral ampicillin to complete a 14 day course of treatment currently at day 5. Will reassess tomorrow with possible discharge. 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 involvement without evidence of necrosis Code(s): E11.621 - Type 2 diabetes mellitus with foot ulcer; L97.509 - Non-pressure chronic ulcer of other part of unspecified foot with unspecified severity Status: Acute Assessment and Plan: No evidence of osteomyelitis on x-ray. Will continue current wound care. Final wound culture as noted above. Now on IV ampicillin as noted above with plan to transition to oral ampicillin at discharge. Will need to follow-up with Dr. Fernandez, his regular sas developer, after discharge. (3) Cellulitis of right foot: Code(s): L03.115 - Cellulitis of right lower limb Status: Acute Assessment and Plan: Improved with IV antibiotics. Now on IV ampicillin as noted above. (4) Insulin dependent type 2 diabetes mellitus: Code(s): E11.9 - Type 2 diabetes mellitus without complications; Z79.4 - half-way (current) use of insulin Status: Acute Assessment and Plan: Hemoglobin A1c 6.8. Glucose reviewed on 02/20/2020 and now acceptable. Will continue current split dose of Lantus. Continue sliding scale insulin. Will continue to monitor and adjust treatment as needed. (5) Hypokalemia: Code(s): E87.6 - Hypokalemia Status: Acute Assessment and Plan: Potassium 3.0 today with oral replacement given. Will continue to monitor. Replace as needed. (6) Hypertension: Qualifiers: Hypertension type: essential hypertension Qualified Code(s): I10 - Essential (primary) hypertension Code(s): I10 - Essential (primary) hypertension Status: Acute Assessment and Plan: Blood pressure reviewed on 02/20/2020 and remains stable. Will continue current amlodipine, carvedilol and valsartan. Continue to hold HCTZ. Will continue to monitor. Adjust treatment as needed. (7) Acute kidney injury: Code(s): N17.9 - Acute kidney failure, unspecified Status: Resolved Assessment and Plan: Result of dehydration and/or ATN from sepsis. Creatinine remains normal at 0.80 today. Will continue to monitor. (8) Hyponatremia: Code(s): E87.1 - Hypo-osmolality and hyponatremia Status: Acute Assessment and Plan: Sodium level stable at 133 today. Will monitor. (9) DVT prophylaxis: Code(s): Z29.9 - Encounter for prophylactic measures, unspecified Status: Acute Assessment and Plan: Lovenox. DS: Summary Hospital Course Reason for hospit
[2020-02-21] MEDS: INSULIN ASPART (*BKC) 100 UNITS/ML SUB-Q (12:12)
[2020-02-21] MEDS: POTASSIUM CHLORIDE 20 MEQ TABLET 40 MEQ PO (12:12)
== END 2020-02-21 13:45 | disposition home or self-care (01) | DRG 867 ==
LOC: ANHED 18:15 → ANH3MED 20:43
PROVIDERS: Hospitalist; Internal Medicine Infectious Disease; Physician Assistant; Admitting Provider Internal Medicine; Emergency Provider Emergency Medicine; PCP Internal Medicine; Visit Provider Family Medicine
DX: A28.0 Pasteurellosis (principal); N17.0 Acute kidney failure with tubular necrosis; L03.115 Cellulitis of right lower limb; E87.1 Hypo-osmolality and hyponatremia; Z68.41 Body mass index [BMI] 40.0-44.9, adult; E66.01 Morbid (severe) obesity due to excess calories; L97.519 Non-pressure chronic ulcer of other part of right foot with unspecified severity; E11.621 Type 2 diabetes mellitus with foot ulcer; E11.42 Type 2 diabetes mellitus with diabetic polyneuropathy; E87.6 Hypokalemia; M19.90 Unspecified osteoarthritis, unspecified site; E11.65 Type 2 diabetes mellitus with hyperglycemia; E86.0 Dehydration; I10 Essential (primary) hypertension; Z96.641 Presence of right artificial hip joint; Z79.4 Long term (current) use of insulin; Z98.1 Arthrodesis status; Z86.73 Personal history of transient ischemic attack (TIA), and cerebral infarction without residual deficits
CPT/HCPCS: 36415; 73630; 80048; 80053; 80069; 81001; 82550; 83036; 83605; 83735; 84100; 85025; 85027; 85652; 86140; 87040; 87070; 87077; 87205; 96365; 96366; 96375; 99285; A9270; J0290; J0743; J1650; J1815; J3370; J7030

== ENCOUNTER 2020-03-05 08:27 | Inpatient (IN) | payer MEDICARE, OTHER, SELFPAY ==
[2020-03-05] VITALS (7 sets, daily range): BP systolic 102–120; BP diastolic 57–63; PULSE 64–106; RESP 24–26; TEMP 36.1–36.9; O2SAT 94–98; BMI 35.6
--- NOTE | ~2020-03-05 | XR_ITS ---
EXAMINATION: XR foot RT min 3V EXAM DATE: 03/06/2020 16:54 INDICATION: Infected right foot, plantar surface. TECHNIQUE: Right foot dorsoplantar, lateral and oblique projections obtained and reviewed. Compariso n is made to prior examination from, 02/16/2020 04/10/2019. FINDINGS: Large ulceration identified along the volar aspect of the foot. There is severe swelling o f the entire foot. Again there is changes of the midfoot, collapse of the calcaneus with decreased Josh ehler's angle, pes planus. Similar appearance compared to prior 2 examinations, most consistent with neuropathic foot. Difficult to exclude osteomyelitis in this setting, but findings do appear chronic. There are no acute fractures identified. IMPRESSION: 1. Findings consistent with chronic neuropathic foot. 2. Large soft tissue ulceration. Soft tissue swelling. Reviewed, dictated and finalized at location A.
--- NOTE | ~2020-03-05 | XR_ITS ---
XR chest 1V portable DATE: 03/05/2020 10:34 INDICATION: Sepsis TECHNIQUE: Portable upright AP views on 03/05/2020 at 1022 and 1023 hours COMPARISON: 04/10/2019 PA and lateral chest FINDINGS: Heart size appears within normal limits. No hilar or mediastinal enlargement. There is aort ic arch calcification. No pulmonary infiltrate or consolidation, pleural effusion or pulmonary vascular congestion or pneumo thorax is detected. IMPRESSION: No active cardiopulmonary disease Reviewed, dictated and finalized at location A.
--- NOTE | 2020-03-05 08:29 | ECG_ITS ---
Measurements Intervals [place] Rate: 108 P: 55 VA: 212 QRS: -17 QRSD: 90 T: 22 QT: 345 QTc: 463 Interpretive Statements SINUS TACHYCARDIA WITH FIRST DEGREE AV BLOCK ATRIAL AND VENTRICULAR PREMATURE COMPLEXES DELAYED PRECORDIAL R/S TRANSITION LOW QRS VOLTAGE- DIFFUSE LEADS INFERIOR INFARCT, AGE INDETERMINATE ABNORMAL ECG Electronically Signed On 03-05-2020 9:29:23 CDT by Yinka Morton D.O.
[2020-03-05] MEDS: SODIUM CHLORIDE 0.45% 1,000 ML 100 ML IV CONT (09:11)
--- NOTE | 2020-03-05 09:53 | PM.CNCAR ---
Assessment and Plan Assessment and plan (1) Hypertension: Qualifiers: Hypertension type: essential hypertension Qualified Code(s): I10 - Essential (primary) hypertension Code(s): I10 - Essential (primary) hypertension Status: Acute Assessment and Plan: Relative hypotension. Hold BP medication and resume as needed once BP becomes elevated. (2) Cellulitis of right foot: Code(s): L03.115 - Cellulitis of right lower limb Status: Acute (3) Sepsis: Qualifiers: Sepsis acute organ dysfunction status: without acute organ dysfunction Sepsis type: sepsis due to unspecified organism Qualified Code(s): A41.9 - Sepsis, unspecified organism Code(s): A41.9 - Sepsis, unspecified organism Status: Acute Assessment and Plan: Covid test pending. ID consulted. Treatment per hospitalist and ID service. (4) Elevated troponin: Code(s): R79.89 - Other specified abnormal findings of blood chemistry Status: Acute Assessment and Plan: No clinical symptoms of ACS. EKG is unremarkable. Troponin could be elevated in setting of anemia, CKD, sepsis and hypotension. Follow troponins. Obtain echo. (5) Hepatitis C: Code(s): B19.20 - Unspecified viral hepatitis C without hepatic coma Status: Acute (6) Anemia of chronic disease: Code(s): D63.8 - Anemia in other chronic diseases classified elsewhere Status: Acute (7) Syncope: Code(s): R55 - Syncope and collapse Status: Acute Assessment and Plan: Probably due to hypotension from volume depletion, sepsis. (8) CKD (chronic kidney disease) stage 3, GFR 30-59 ml/min: Code(s): N18.3 - Chronic kidney disease, stage 3 (moderate) Status: Acute History of Present Illness History of Present Illness Consult date/time: 03/05/20 09:53 Consult regarding: Elevated troponin. 64 yr old man was recently hospitalized here on 03/15/22 for sepsis and found to be bacteremic with Pasturella multocida. He has a history of IDDM with charcot neuropathy of right foot, hypertension, hepatitis C, stroke (with dizziness/disorientation due to pontine stroke, per patient). He reports getting up to use restroom last night and could not get back up in bed as he has a high bed. He fell and did not remember anything else. EMS brought him to [facility] and he was then subsequently transferred to [facility]. He notes abrasions on both knees from the fall, but did not hurt his head or neck. He does have fever/chills and he checked his temp at home it went up to 101. Denies chest pain, sob. Reports pain in right leg and and foot since last admission here. At [place], labs show anemic with Hb 85 gm, lactic acid elevated at 5.6, GFR 36, troponins went from 0.46 to 0.5 to 1.8. EKG is unremarkable except for inferior infarct, age indeterminate. He states normally he can walk 100 feet if it was not for his right foot/leg pain. Reason For Visit: sepsis nstemi r/o covid Review of Systems Review of Systems: All systems reviewed & are unremarkable except as noted in HPI and below Constitutional: Constitutional: Reports as per HPI and Reports chills Cardiovascular: Cardiovascular: Reports as per HPI, Denies chest pain and Reports pedal edema Respiratory: Respiratory: Reports as per HPI and Denies dyspnea Gastrointestinal: Gastrointestinal: Reports as per HPI and Denies abdominal pain Musculoskeletal: Musculoskeletal: Reports as per HPI and Reports arthralgias Neurologic: Reports as per HPI and Denies Abnormal speech present [facility] Past Medical History Medical History (Updated 03/05/20 @ 10:11 by Yinka Morton DO) Anemia of chronic disease Charcot foot due to diabetes mellitus Right foot. Chronic wound of extremity Chronic right plantar diabetic foot ulcer, under the care of Jordin Fernandez DPM. CVA (cerebral vascular accident) with mild gait disturbance. Diabetic peripher
[2020-03-05 09:57] LABS: Add Urine Microscopic? YES; Appearance Urine Clear (Clear); Bacteria Urine Trace /hpf; Bilirubin Urine Negative (Negative); Blood Urine 2+ (Negative); Color Urine Yellow (Yellow); Glucose Urine UA Negative (Negative); Ketones Urine Negative (Negative); Leukocyte Esterase Ur Negative LEU/UL (NEGATIVE); Mucus Urine Rare /lpf; Nitrate Urine Negative (Negative); Protein Urine Negative (Negative); RBC Urine 21-50 /hpf (0-2); Specific Grav Ur 1.013 (1.001-1.035); Squamous Epithelial Cell Urine Rare /hpf (Few); WBC Urine 0-3 /hpf (0-3)
[2020-03-05 10:12] LABS: Basophils Percent Auto 0.3 % (0.2-1.2); Hematocrit 28.2 % (42.0-52.0); Hemoglobin 8.9 g/dL (14.0-18.0); Immature Granulocyte Absolute 0.11 K/mm3 (0.00-0.031); Immature Granulocyte Percent A 0.8 % (0-0.5); Lymphocytes Percent Auto 5.5 % (18.3-44.2); Mean Corpuscular HGB Conc 31.6 g/dl (32-36); Mean Corpuscular Hemoglobin 25.4 pg (26-34); Mean Corpuscular Volume 80.6 fl (80-100); Mean Platelet Volume 9.4 fl (7.4-10.4); Monocytes Absolute Auto 1.2 K/mm3 (0.1-0.6); Monocytes Percent Auto 8.2 % (2.6-8.5); Neutrophils Absolute Auto 12.4 K/mm3 (1.3-6.7); Neutrophils Percent Auto 85.2 % (45.5-73.1); Platelet Count Result 372 k/mm3 (150-375); Red Cell Distribution Width 15.5 % (11.5-14.5); White Blood Count 14.5 K/mm3 (4.5-10.0)
[2020-03-05 11:51] LABS: Glucose Point of Care 274 (65-105)
[2020-03-05] MEDS: INSULIN ASPART (*BKC) 100 UNITS/ML SUB-Q ×2 (12:11→17:36)
[2020-03-05] MEDS: INSULIN GLARGINE (*BKC) 100 UNITS/ML 45 UNITS SUB-Q (12:12)
--- NOTE | 2020-03-05 12:33 | PC.NURSE ---
This patient, Mathew Benitez, was admitted to Intensive Care Unit-1. Patient/family oriented to hospital policies and general routines including ID bracelet, bed and alarms, visiting hours, pain management, procedures, bathroom and other care routines, personal items, smoking policy, room service/diet, and visiting hours. Valuables list has been completed. Information on how to activate the Rapid Response Team has been discussed. Patient/Family are encouraged to report perceived risks to care and to ask questions if they do not understand what they are told or what they should do.
--- NOTE | 2020-03-05 13:05 | WPDCNINT ---
Assessment and Plan Assessment and plan (1) Syncope: Code(s): R55 - Syncope and collapse Status: Acute Assessment and Plan: Likely from hypotension. He will be monitored on telemetry for any acute cardiac event or arrhythmia. (2) Anemia of chronic disease: Code(s): D63.8 - Anemia in other chronic diseases classified elsewhere Status: Acute Assessment and Plan: H&H has been at his baseline. Continue to monitor. (3) Elevated troponin: Code(s): R79.89 - Other specified abnormal findings of blood chemistry Status: Acute Assessment and Plan: Troponin started trending up with the highest being 1.8 at [facility]. Now it has been trending down. Troponin here is 1.47. He has been evaluated by cardiology service who does not feel that he is having acute coronary Syndrome. I think that it may be demand ischemia in the setting of anemia, chronic kidney disease, sepsis and hypotension. Heparin drip will be stopped as advised by cardiology service. Echo will be performed. (4) Cellulitis of right foot: Code(s): L03.115 - Cellulitis of right lower limb Status: Acute Assessment and Plan: Will start broad-spectrum antibiotics with vancomycin and Zosyn. Follow cultures. Culture have been sent at [facility] as well which would need to be followed. Podiatry will be consulted. Wound Care will be consulted as well. (5) Diabetic foot ulcer: Qualifiers: Diabetes mellitus type: type 2 Diabetic foot ulcer location: midfoot Laterality: right Non-pressure ulcer stage: with muscle involvement without evidence of necrosis Qualified Code(s): E11.621 - Type 2 diabetes mellitus with foot ulcer; L97.415 - Non-pressure chronic ulcer of right heel and midfoot with muscle involvement without evidence of necrosis Code(s): E11.621 - Type 2 diabetes mellitus with foot ulcer; L97.509 - Non-pressure chronic ulcer of other part of unspecified foot with unspecified severity Status: Acute Assessment and Plan: Is above (6) Insulin dependent type 2 diabetes mellitus: Code(s): E11.9 - Type 2 diabetes mellitus without complications; Z79.4 - FPC (current) use of insulin Status: Acute Assessment and Plan: Hold oral hypoglycemic agents. Insulin sliding scale. Lantus has been ordered by the primary team. (7) Sepsis: Qualifiers: Sepsis acute organ dysfunction status: without acute organ dysfunction Sepsis type: sepsis due to unspecified organism Qualified Code(s): A41.9 - Sepsis, unspecified organism Code(s): A41.9 - Sepsis, unspecified organism Status: Acute Assessment and Plan: Reportedly he was hypertensive to systolic blood pressure of 70s and 80s at [facility]. His lactic acid was elevated as well which was 5.6. It is unclear about the amount of fluid resuscitation he has received 8 [facility]. He was transferred on dopamine infusion with a rate of 12 mcg. At the time of my evaluation he was off dopamine drip and his blood pressure was within acceptable range with systolic blood pressure ranging from 97-102. Will hold off dopamine infusion for now. We will give him 500 cc normal saline bolus x2 and reassess. Continue to trend lactic acid until it resolves. Hold off his home antihypertensive regimen. He seems to be on amlodipine, carvedilol, valsartan and hydrochlorothiazide. (8) DVT prophylaxis: Code(s): Z29.9 - Encounter for prophylactic measures, unspecified Status: Acute Assessment and Plan: Subcu heparin GI prophylaxis not indicated Additional Plan If his blood pressure remains in acceptable range in the next 12-24 hour then he can be downgraded to telemetry / IMU status. Due to a high probability of clinically significant, life threatening deterioration, the patient required my highest level o
[2020-03-05] MEDS: SODIUM CHLORIDE 0.9% IV 500 ML IV CONT (14:25)
[2020-03-05 15:08] LABS: Estimated CRCL calculation 65 ml/min; Estimated Glomerular Filt Rate 55; Lactic Acid 1.3 mmol/L (0.7-2.1)
--- NOTE | 2020-03-05 15:28 | PM.IMHP ---
H&P: HPI History of Present Illness Chief complaint: sepsis nstemi r/o covid Narrative: Mathew Benitez is a 64 year old male initally admitted with nstemi, sepsis and covid rule out. pt was seen by cardiology, who felt his elevated troponins are not related to cardiac ischemia. Likely secondary to sepsis. Pt was here recently, pt is a diabetic. pt grew pasterulla in his blood cultures. finished his oral of antibitiocs and was discharged home. pt since discharge fell at home and collapsed. went to [facility] and was transfered here for higher level of care. Pts bp has been low since admission, pt was intially on iv heparin drip which has been stopped and dopamine drip which is weaned off. Pt is currently on iv fluids for hypotension and septic shock. Dopamine drip is weaned. Pt has history of dm, charcot foot, hypertension, recently in hospital with r lower ext cellultis and dm foot infection. Pt lactate level is high again, admitted again for septic shock. Seen in icu attending and cardiology and ID Review of Systems Review of Systems: All systems reviewed & are unremarkable except as noted in HPI and below Respiratory: Respiratory: Denies chest congestion, Denies cough, Denies dyspnea and Denies wheezing Integumentary/Breasts: Comments: pain and swelling and redness of right leg PMFSH Past Medical History Medical History (Updated 03/05/20 @ 15:46 by Farzana Cadena MD) Anemia of chronic disease Charcot foot due to diabetes mellitus Right foot. Chronic wound of extremity Chronic right plantar diabetic foot ulcer, under the care of Jordin Fernandez DPM. CVA (cerebral vascular accident) with mild gait disturbance. Diabetic peripheral neuropathy Hepatitis C Completed treatment in 2017. Hypertension Insulin dependent type 2 diabetes mellitus Osteoarthritis Osteomyelitis Surgical History Surgical History History of cataract surgery History of cholecystectomy For gangrenous cholecystitis an abscess in October 2017. History of fusion of cervical spine History of laparoscopic adjustable gastric banding 2004. History of skin graft to right foot wound. History of total right hip replacement Family History Family History Father Family history of lung cancer Other Diabetes mellitus Family history of allergic disorder Family history of cardiovascular disease Family history of malignant neoplasm Hypertension Social History Social History Social History: The patient lives in his own home in [place]. He is a lifelong nonsmoker and denies alcohol abuse. He smokes marijuana on occasion. He designates his sister, Kendal Martinez, and his son Nhan Benitez as his surrogate decision makers and he wishes to be a full code. Smoking status: Never smoker Second hand tobacco smoke exposure: Yes Alcohol intake: never Drinks per week: 4 Substance use: never Substance use type: marijuana Gender identity (if verbalized by the patient): Male Spiritual care concerns: No Agree to blood products: Yes Meds Home Medications and Allergies Home Medications Medication Instructions Recorded Confirmed Type amlodipine 5 mg PO BID 02/16/20 03/05/20 History carvedilol 25 mg PO BID 02/16/20 03/05/20 History aspirin [Aspirin Low Dose] 81 mg PO DAILY 03/05/20 03/05/20 History hydrocodone-acetaminophen 2 tab PO Q4H PRN 03/05/20 03/05/20 History potassium chloride 10 meq PO DAILY 03/05/20 03/05/20 History sitagliptin-metformin [Janumet] 1 tablet PO BID 03/05/20 03/05/20 History tramadol 50 mg PO Q6H PRN 03/05/20 03/05/20 History valsartan 80 mg PO DAILY 03/05/20 03/05/20 History valsartan-hydrochlorothiazide 1 tablet PO DAILY 03/05/20 03/05/20 History Allergies Allergy/AdvReac Type Severity Reaction Status Date / Time No Known Allergies All
--- NOTE | 2020-03-05 16:16 | WPDINFPN2 ---
Progress Note: A&P Additional Plan Patient was seen in consult dictated. Thank you. Subjective Date/time seen: 03/05/20 16:16 Objective Data Vital Signs Vital Signs: Vital Signs - 24 hr 03/05/20 10:00 03/05/20 12:00 03/05/20 14:00 Temperature 36.1 C L Pulse Rate 106 H 64 65 Respiratory Rate 24 H Blood Pressure 102/63 Pulse Oximetry 97 Intake/Output Intake/Output: Intake & Output 03/02/20 03/03/20 03/04/20 03/05/20 23:59 23:59 23:59 23:59 Intake Total 120 Output Total 600 Balance -480 Meds/Results Medications: Active Medications Generic Name Dose Route Start Last Admin Trade Name Freq PRN Reason Stop Dose Admin Dextrose 12.5 gm 03/05/20 08:35 Dextrose 50% Syringe IV PUSH PRN PRN Hypoglycemia Protocol Glucagon 1 mg 03/05/20 08:35 Glucagon For Inj IM PRN PRN Hypoglycemia Protocol Glucose 15 gm 03/05/20 08:35 Glutose 15 PO PRN PRN Hypoglycemia Protocol Sodium Chloride 1,000 mls @ 100 mls/hr 03/05/20 08:30 03/05/20 09:11 Sodium Chloride 0.45% IV CONT 100 mls/hr .Q10H KJ Administration Dextrose 1,000 mls @ 100 mls/hr 03/05/20 08:35 Dextrose 5% 1,000 Ml IVPB PRN PRN Hypoglycemia Protocol Piperacillin Sod/Tazobactam Sod 2.25 gm in 50 mls @ 100 mls/hr 03/05/20 14:00 03/05/20 14:24 Zosyn 2.25 Gm/D5w 50 Ml IVPB 100 mls/hr Q8H KJ Administration Vancomycin HCl 1,750 mg in 500 mls @ 250 mls/hr 03/05/20 16:00 Vancomycin 1,750 Mg/D5w 500 Ml IVPB Q18H KJ Insulin Aspart 2 - 5 units 03/05/20 12:00 03/05/20 12:11 Novolog SUB-Q 3 units TIDWM KJ Administration Protocol Insulin Glargine 45 units 03/05/20 11:30 03/05/20 12:12 Lantus SUB-Q 45 units AC KJ Administration Insulin Glargine 35 units 03/05/20 21:00 Lantus SUB-Q [facility] Radiology Results: ITS Impressions Chest X-Ray 03/05/20 10:36 IMPRESSION: No active cardiopulmonary disease Labs Labs: Laboratory Results - last 24 hr 03/05/20 03/05/20 03/05/20 09:26 10:07 10:07 WBC 14.5 H RBC 3.50 L Hgb 8.9 L Hct 28.2 L MCV 80.6 MCH 25.4 L MCHC 31.6 L RDW 15.5 H Plt Count 372 MPV 9.4 Immature Gran % (Auto) 0.8 H Neut % (Auto) 85.2 H Lymph % (Auto) 5.5 L Anderson % (Auto) 8.2 Eos % (Auto) 0.0 Baso % (Auto) 0.3 Lymph # (Auto) 0.80 L Anderson # (Auto) 1.2 H Eos # (Auto) 0.0 Baso # (Auto) 0.0 Abs Immat Gran (auto) 0.11 H Absolute Neuts (auto) 12.4 H Absolute Nucleated RBC 0.0 Nucleated RBC % 0.0 Creatinine Estim Creat Clear Calc Estimated GFR POC Capillary Glucose Lactic Acid Troponin I 1.470 H* Urine Color Yellow Urine Appearance Clear Urine pH 5.0 Ur Specific Varney 1.013 Urine Protein Negative Urine Glucose (UA) Negative Urine Ketones Negative Ur Blood (Man) 2+ H Urine Nitrate Negative Urine Bilirubin Negative Urine Urobilinogen 2.0 H Ur Leukocyte Esterase Negative Urine RBC 21-50 H Urine WBC 0-3 Ur Squamous Epith Cells Rare Urine Bacteria Trace Urine Mucus Rare 03/05/20 03/05/20 03/05/20 11:45 14:51 14:51 WBC RBC Hgb Hct MCV MCH MCHC RDW Plt Count MPV Immature Gran % (Auto) Neut % (Auto) Lymph % (Auto) Anderson % (Auto) Eos % (Auto) Baso % (Auto) Lymph # (Auto) Anderson # (Auto) Eos # (Auto) Baso # (Auto) Abs Immat Gran (auto) Absolute Neuts (auto) Absolute Nucleated RBC Nucleated RBC % Creatinine 1.30 Estim Creat Clear Calc 65 Estimated GFR 55 L POC Capillary Glucose 274 H Lactic Acid 1.3 Troponin I Urine Color Urine Appearance Urine pH Ur Specific Varney Urine Protein Urine Glucose (UA) Urine Ketones Ur Blood (Man) Urine Nitrate Urine Bilirubin Urine Urobilinogen
[2020-03-05 16:33] LABS: Hemoglobin A1C 7.6 % (<5.7)
[2020-03-05 16:38] LABS: Glucose Point of Care 248 (65-105)
[2020-03-05] MEDS: TRAMADOL HCL 50 MG TABLET PO ×2 (17:29→23:57)
--- NOTE | 2020-03-05 19:27 | PC.NURSE ---
Received preliminary blood cultures from [place], Dr. Cadena notified. Await further blood cultures drawn 03/05/20.
[2020-03-05] MEDS: HEPARIN SODIUM 5,000 UNITS/ML VIAL 5000 UNITS SUB-Q (21:11)
[2020-03-05] MEDS: INSULIN GLARGINE (*BKC) 100 UNITS/ML 35 UNITS SUB-Q (21:11)
[2020-03-05 21:35] LABS: Glucose Point of Care 248 (65-105)
--- NOTE | 2020-03-05 21:55 | CONS_ITS ---
DATE OF CONSULTATION: 03/05/2020 REQUESTING PHYSICIAN: Dr. Farzana Cadena. REASON FOR CONSULTATION: Rule out COVID, sepsis with leukocytosis. HISTORY OF PRESENT ILLNESS: This is a 64-year-old male with significant past medical history for type 2 diabetes, Charcot foot, recent history of pasteurella bacteremia, cerebrovascular accident, currently presented today to [facility] with clinical symptoms of sepsis. The patient was transferred to [facility] for further care. On admission, he was found to have an elevated white count of 14,000. There is also diagnosis of [id number] myocardial infarction versus cardiac ischemia with elevated troponin. Currently, patient states he had episodes of chills, but no documented fever. No nausea, no vomiting, no diarrhea. PAST MEDICAL HISTORY: Anemia, Charcot foot, diabetic foot ulcer bilaterally, cerebrovascular accident, diabetic neuropathy, hepatitis C, hypertension, type 2 diabetes, osteomyelitis. PAST SURGICAL HISTORY: Cataract surgery, cholecystectomy, laparoscopic gastric banding, debridement of large right foot. FAMILY HISTORY: Positive for diabetes, hypertension. SOCIAL HISTORY: Nonsmoker. Drinks about 4 drinks per month. Admits to smoking marijuana. MEDICATIONS: At home, amlodipine, carvedilol, aspirin, , Janumet, valsartan, hydrochlorothiazide. ALLERGIES: NO KNOWN DRUG ALLERGIES. REVIEW OF SYSTEMS: No headache. No photophobia. Positive chills. No conjunctival injection. Nonicteric sclera. No earache. No sinus congestion. No sore throat. No shortness of breath. No orthopnea. No PND. No cough. No chest pain. No palpitation. No abdominal pain. No constipation. No diarrhea. No dysuria. No scrotal edema. No penile discharge. Positive bilateral lower extremity chronic edema with bilateral plantar ulcer, right greater than the left. No joint swelling. No skin rash. No petechiae and no hemorrhages. No purpura. No lymphadenopathy. No epistaxis. No focal neurological deficit. No syncope. No seizure activity. MEDICATIONS IN THE HOSPITAL: He is currently on Zosyn, vancomycin, insulin, dopamine. PHYSICAL EXAMINATION: VITAL SIGNS: Temperature 36, pulse rate of 106, respiratory rate of 22, blood pressure 102/60, saturating 97% on 4 L nasal cannula. HEAD: Normocephalic, atraumatic. NECK: Supple. There is no JVD. No lymphadenopathy. LUNGS: Good bilateral air entry. No rales, no wheeze. CARDIOVASCULAR SYSTEM: Positive S1, positive S2. No S3, S4. No murmur. ABDOMEN: Positive bowel sounds. Nontender. No organomegaly. No mass. EXTREMITIES: Trace edema. NEUROLOGICAL: He is alert, awake, oriented. No focal deficits. SKIN: There is no rash. Bilateral lower extremity plantar aspect ulcer on the right foot and large mid plantar ulcer at least 5 x 5 cm. No signs of necrosis. Positive surrounding erythema extending to the dorsum aspect of the left foot. Around the 1st digit area, there is a superficial ulceration with callus formation. LABORATORY EXAMINATION: White count 14,000, hemoglobin of 8, hematocrit of 28, platelet of 372, segmental of 85%. Sodium is 136, potassium 3.2, chloride 101, bicarb of 28, BUN 13, creatinine 0.8. Urinalysis: Nitrite is negative, leukocyte esterase trace, wbc of 0 to 3. Blood cultures x2 sets are pending. Chest x-ray, no acute cardiopulmonary disease. X-ray of the right foot, right foot neuropathic joint large ulceration. No osseous erosion to specifically suggest osteomyelitis. ASSESSMENT AND PLAN: 1. Sepsis with presentation of hypotension and leukocytosis. No clear source, possibility of right lower extremity cellulitis. The patient has been empirically started on Zosyn and vancomycin. We will continu
[2020-03-06] VITALS (12 sets, daily range): BP systolic 98–143; BP diastolic 45–72; PULSE 51–96; RESP 18–27; TEMP 36.7–37.3; O2SAT 92–96
--- NOTE | 2020-03-06 | ECHO_ITS ---
Patient Info Name: Mathew Benitez Age: 64 years : 1955 Gender: Male Ht: 72 in Wt: 280 lbs BSA: 2.59 m2 HR: 90 bpm BP: 143 / 72 mmHg Heart Rhythm: Sinus Rhythm Technical Quality: Fair Exam Date: 03/06/2020 4:25 PM Exam Location: [facility] Pul[facility] Patient Status: Inpatient Admit Date: 03/05/2020 Staff Ordering Physician: Yinka Morton DO Mri Manager: Martin Mcknight RDCS Attending Provider: Bebeto Smith MD Referring Physician: Praveen DAMON; Exam Type: CA echo doppler color flow Study Info Indications I21.4 - Non-ST elevation (NSTEMI) myocardial infarction Complete two-dimensional, color flow and Doppler transthoracic echocardiogram is performed. History/Risk Factors NSTEMI; DM2, HTN, CVA, Hep C. Summary 1. Left ventricular chamber dimension is normal. 2. Left ventricular systolic function is normal, estimated at 55-60%. 3. There is moderately increased left ventricular wall thickness. 4. The left ventricular diastolic function is grade I diastolic dysfunction. 5. E/e' 9 is minimally elevated. 6. Left atrial chamber dimension is mildly enlarged. 7. There is moderate aortic valve sclerosis. 8. There is mild to moderate aortic valve stenosis with a peak velocity of 232 cm/s, mean gradient of 11 mmHg, and aortic valve area of 1.3 cm2. 9. There is trace tricuspid valve regurgitation. Left Ventricle E/e' 9 is minimally elevated. Left ventricular chamber dimension is normal. Left ventricular systolic function is normal, estimated at 55-60%. There is moderately increased left ventricular wall thickness. The left ventricular diastolic function is grade I diastolic dysfunction. Right Ventricle Right ventricular chamber dimension is normal. Right ventricular systolic function is normal. Left Atria Left atrial chamber dimension is mildly enlarged. Right Atria Right atrial chamber dimension is normal. Aortic Valve The aortic valve is trileaflet. There is moderate aortic valve sclerosis. There is mild to moderate aortic valve stenosis with a peak velocity of 232 cm/s, mean gradient of 11 mmHg, and aortic valve area of 1.3 cm2. There is no aortic valve regurgitation. Pulmonic Valve There is no pulmonic regurgitation. Mitral Valve There is no mitral valve stenosis. There is no mitral valve regurgitation. Tricuspid Valve There is trace tricuspid valve regurgitation. RVSP is not calculated due to an inadequate TR jet. Pericardium/Pleural There is no pericardial effusion. Inferior Vena Cava Normal inferior vena cava with >50% collapse upon inspiration consistent with normal right atrial pressure, 5 mmHg. Aorta The aortic root size at the sinus of Valsalva is normal. Left Ventricular Outflow Tract Name Value Normal LVOT 2D LVOT Diameter 2.0 cm LVOT Doppler LVOT Peak Gradient 3 mmHg LVOT Mean Gradient 2 mmHg LVOT VTI 17 cm LVOT VTI/AV VTI Ratio 0.4 LVOT Stroke Volume 55 ml LVOT CO
[2020-03-06] MEDS: HEPARIN SODIUM 5,000 UNITS/ML VIAL 5000 UNITS SUB-Q ×2 (05:32→19:06)
[2020-03-06] MEDS: SODIUM CHLORIDE 0.45% 1,000 ML 100 ML IV CONT (05:32)
[2020-03-06 05:46] LABS: Basophils Absolute Auto 0.1 K/mm3 (0.0-0.1); Basophils Percent Auto 0.6 % (0.2-1.2); Eosinophils Absolute Auto 0.1 K/mm3 (0-0.3); Eosinophils Percent Auto 1.5 % (0-4.4); Hematocrit 25.5 % (42.0-52.0); Immature Granulocyte Absolute 0.09 K/mm3 (0.00-0.031); Immature Granulocyte Percent A 1.1 % (0-0.5); Lymphocytes Absolute Auto 0.88 K/mm3 (0.9-3.2); Lymphocytes Percent Auto 11.2 % (18.3-44.2); Mean Corpuscular HGB Conc 31.4 g/dl (32-36); Mean Corpuscular Hemoglobin 25.2 pg (26-34); Mean Corpuscular Volume 80.4 fl (80-100); Mean Platelet Volume 9.7 fl (7.4-10.4); Monocytes Absolute Auto 0.7 K/mm3 (0.1-0.6); Monocytes Percent Auto 8.8 % (2.6-8.5); Neutrophils Percent Auto 76.8 % (45.5-73.1); Platelet Count Result 339 k/mm3 (150-375); Red Blood Count 3.17 M/mm3 (4.6-6.20); Red Cell Distribution Width 15.4 % (11.5-14.5); White Blood Count 7.8 K/mm3 (4.5-10.0)
[2020-03-06 06:51] LABS: Lactic Acid 0.8 mmol/L (0.7-2.1)
[2020-03-06 06:52] LABS: Alanine Aminotransferase 24 U/L (4-50); Albumin Level 2.7 g/dL (3.5-5.1); Alkaline Phosphatase 207 U/L (38-126); Aspartate Amino Transferase 29 U/L (17-59); Bilirubin,Total 0.4 mg/dL (0.2-1.3); Blood Urea Nitrogen 28 mg/dL (9-20); Calcium 8.2 mg/dL (8.4-10.2); Carbon Dioxide 27 mmol/L (22-30); Chloride 101 mmol/L (98-107); Estimated CRCL calculation 98 ml/min; Estimated Glomerular Filt Rate > 60; Glucose 169 mg/dL (75-110); Magnesium 1.7 mg/dL (1.6-2.3); Phosphorus 3.1 mg/dL (2.5-4.5); Potassium 3.4 mmol/L (3.4-5.0); Sodium 134 mmol/L (137-145)
--- NOTE | 2020-03-06 07:00 | ECG_ITS ---
Measurements Intervals [place] Rate: 89 P: 33 [place]: 176 QRS: -24 QRSD: 74 T: 58 QT: 338 QTc: 412 Interpretive Statements SINUS RHYTHM LOW QRS VOLTAGE- DIFFUSE LEADS POOR R WAVE PROGRESSION, ANTERIOR LEADS INFERIOR INFARCT, AGE INDETERMINATE BASELINE ARTIFACT- I, III, AVR, AVL, AVF, V1-V2 ABNORMAL ECG Electronically Signed On 03-06-2020 18:12:00 CDT by Yinka Morton D.O.
--- NOTE | 2020-03-06 08:18 | PM.PNCARD ---
Progress Note: A&P Assessment and Plan (1) CKD (chronic kidney disease) stage 3, GFR 30-59 ml/min: Code(s): N18.3 - Chronic kidney disease, stage 3 (moderate) Status: Acute (2) Syncope: Code(s): R55 - Syncope and collapse Status: Acute Assessment and Plan: Probably related to volume depletion and septic shock. Off dopamine drip and BP is normal. (3) Elevated troponin: Code(s): R79.89 - Other specified abnormal findings of blood chemistry Status: Acute Assessment and Plan: Trended down. No clinical symptoms of ACS. EKG is unremarkable. Troponin could be elevated in setting of anemia, CKD, sepsis and hypotension. Obtain echo. If echo shows no wall motion abnormalities, no further cardiac workup is needed. (4) Hypertension: Qualifiers: Hypertension type: essential hypertension Qualified Code(s): I10 - Essential (primary) hypertension Code(s): I10 - Essential (primary) hypertension Status: Chronic Assessment and Plan: Restart BP medication as needed once BP is elevated. (5) Sepsis: Qualifiers: Sepsis acute organ dysfunction status: without acute organ dysfunction Sepsis type: sepsis due to unspecified organism Qualified Code(s): A41.9 - Sepsis, unspecified organism Code(s): A41.9 - Sepsis, unspecified organism Status: Acute Assessment and Plan: On antibitiotics. ID following. Covid test pendinig from [place]. Subjective Date/time seen: 03/06/20 08:18 Denies chest pain or sob. Has some right leg pain but improving. Exam Const: General: comfortable and no acute distress Neck: Neck: no JVD Carotids: no bruits Resp: Auscultation: clear to auscultation bilaterally, no crackles, no rales, no rhonchi and no wheezes Cardio: Rate: regular rate Rhythm: regular rhythm Heart sounds: Murmur heart sound present (Systolic murmur III/ RICS) GI: Inspection: non-distended Neuro: Speech: normal speech Extrem: Right lower extremity: edema Left lower extremity: no edema Objective Data Vital Signs Vital Signs: Vital Signs - 24 hr 03/05/20 10:00 03/05/20 12:00 03/05/20 14:00 Temperature 97.0 F L Pulse Rate 106 H 64 65 Respiratory Rate 24 H Blood Pressure 102/63 Pulse Oximetry 97 03/05/20 16:00 03/05/20 18:00 03/05/20 20:00 Temperature 98.5 F 98.3 F Pulse Rate 88 91 82 Respiratory Rate 26 H 24 H Blood Pressure 120/62 113/62 Pulse Oximetry 98 94 03/05/20 22:00 03/06/20 00:00 03/06/20 02:00 Temperature 98.7 F Pulse Rate 86 80 51 L Respiratory Rate 25 H 24 H 20 Blood Pressure 120/57 L 117/68 98/61 L Pulse Oximetry 96 96 95 03/06/20 04:00 03/06/20 06:00 Temperature 98.3 F Pulse Rate 70 62 Respiratory Rate 23 H 22 H Blood Pressure 117/63 115/60 Pulse Oximetry 95 94 Intake/Output Intake/Output: Intake & Output 03/03/20 03/04/20 03/05/20 03/06/20 23:59 23:59 23:59 23:59 Intake Total 1640 990 Output Total 800 775 Balance 840 215 Meds/Results Medications: Active Medications Generic Name Dose Route Start Last Admin Trade Name Freq PRN Reason Stop Dose Admin Dextrose 12.5 gm 03/05/20 08:35 Dextrose 50% Syringe IV PUSH PRN PRN Hypoglycemia Protocol Glucagon 1 mg 03/05/20 08:35 Glucagon For Inj IM PRN PRN Hypoglycemia Protocol Glucose 15 gm 03/05/20 08:35 Glutose 15 PO PRN PRN Hypoglycemia Protocol Heparin Sodium (Porcine) 5,000 units 03/05/20 18:00 03/06/20 05:32 Heparin Sodium SUB-Q 5,000 units Q12H KJ Administration Sodium Chloride 1,000 mls @ 100 mls/hr 03/05/20 08:30 03/06/20 05:32 Sodium Chloride 0.45% IV CONT 100 mls/hr .Q10H KJ Administration Dextrose 1,000 mls @ 100 mls/hr 03/05/20 08:35 Dextrose 5% 1,000 Ml IVPB PRN PRN Hypoglycemia Protocol Piperacillin Sod/Tazobactam Sod 2.25 gm in 50 mls @ 100 mls/hr 03/05/20 14:00
[2020-03-06] MEDS: INSULIN GLARGINE (*BKC) 100 UNITS/ML 45 UNITS SUB-Q (08:27)
[2020-03-06] MEDS: POTASSIUM CHLORIDE 20 MEQ TABLET 40 MEQ PO (08:30)
--- NOTE | 2020-03-06 11:22 | WPDINTPN ---
Progress Note: A&P Assessment and Plan (1) Septic shock: Code(s): A41.9 - Sepsis, unspecified organism; R65.21 - Severe sepsis with septic shock Status: Acute Assessment and Plan: Reportedly he was hypotensive to systolic blood pressure of 70s and 80s at [facility]. His lactic acid was elevated as well which was 5.6. - It is unclear about the amount of fluid resuscitation he has received at [facility]. - He was transferred on dopamine infusion with a rate of 12 mcg. which was quickly discontinued as patient's and arterial pressures remained above 65 mmHg. - Patient did receive IV fluid bolus x2 at [facility] ICU on admission. - Lactic acid 0.8, urine output has been adequate, creatinine has improved - Hold off his home antihypertensive regimen. He seems to be on amlodipine, carvedilol, valsartan and hydrochlorothiazide. (2) Cellulitis of right foot: Code(s): L03.115 - Cellulitis of right lower limb Status: Acute Assessment and Plan: continue vancomycin and Zosyn. - blood cultures resulted from [facility] with gram-negative bacilli. - Podiatry has been consulted and await their evaluation and recommendation - appreciate Wound Care following the patient (3) Syncope: Code(s): R55 - Syncope and collapse Status: Acute Assessment and Plan: Likely from hypotension. He will be monitored on telemetry for any acute cardiac event or arrhythmia. (4) Elevated troponin: Code(s): R79.89 - Other specified abnormal findings of blood chemistry Status: Acute Assessment and Plan: Troponin started trending up with the highest being 1.8 at [facility]. trending down with the last Troponin here being 1.47. - He has been evaluated by cardiology service who does not feel that he is having acute coronary Syndrome. I think that it may be demand ischemia in the setting of anemia, chronic kidney disease, sepsis and hypotension. - Heparin drip discontinued (5) Anemia of chronic disease: Code(s): D63.8 - Anemia in other chronic diseases classified elsewhere Status: Acute Assessment and Plan: H&H has been at his baseline. Continue to monitor. (6) Diabetic foot ulcer: Qualifiers: Diabetes mellitus type: type 2 Diabetic foot ulcer location: midfoot Laterality: right Non-pressure ulcer stage: with muscle involvement without evidence of necrosis Qualified Code(s): E11.621 - Type 2 diabetes mellitus with foot ulcer; L97.415 - Non-pressure chronic ulcer of right heel and midfoot with muscle involvement without evidence of necrosis Code(s): E11.621 - Type 2 diabetes mellitus with foot ulcer; L97.509 - Non-pressure chronic ulcer of other part of unspecified foot with unspecified severity Status: Acute Assessment and Plan: As above (7) Insulin dependent type 2 diabetes mellitus: Code(s): E11.9 - Type 2 diabetes mellitus without complications; Z79.4 - buttermaker continuous churn (current) use of insulin Status: Acute Assessment and Plan: patient on sliding scale insulin Accu-Cheks - continue Lantus - hemoglobin A1c 7.6 on this admission (8) DVT prophylaxis: Code(s): Z29.9 - Encounter for prophylactic measures, unspecified Status: Acute Assessment and Plan: Subcu heparin GI prophylaxis not indicated (9) Dietary counseling and surveillance: Code(s): Z71.3 - Dietary counseling and surveillance Status: Acute Assessment and Plan: patient tolerating p.o. diabetic diet Additional Plan discussed with patient updated with his condition and plan of care. He is aware that his SARS-CoV-2 PCR S pending. He is also aware that he is going to be getting an echocardiogram sometime today code status: Full code Critical care time spent: 34 minutes Due to a high probability of clinically significant, life threatening deterio
[2020-03-06 11:33] LABS: Glucose Point of Care 219 (65-105)
[2020-03-06] MEDS: INSULIN ASPART (*BKC) 100 UNITS/ML SUB-Q (12:09)
[2020-03-06] MEDS: SILVERGEL (ELTA) 45 ML 1 APPLIC TOPICAL (12:10)
--- NOTE | 2020-03-06 15:43 | PM.CNOR ---
Assessment and Plan Assessment and plan (1) Diabetic foot ulcer: Qualifiers: Diabetes mellitus type: type 2 Diabetic foot ulcer location: midfoot Laterality: right Non-pressure ulcer stage: with muscle involvement without evidence of necrosis Qualified Code(s): E11.621 - Type 2 diabetes mellitus with foot ulcer; L97.415 - Non-pressure chronic ulcer of right heel and midfoot with muscle involvement without evidence of necrosis Code(s): E11.621 - Type 2 diabetes mellitus with foot ulcer; L97.509 - Non-pressure chronic ulcer of other part of unspecified foot with unspecified severity Status: Acute Assessment and Plan: Ulcer on the plantar aspect of the right midfoot with 100% red/pink wound bed and surrounding callus formation. Patient reports a 10 year history of current ulcer with intermittent casting, grafting and debridement by his fingerprint expert. He reports having only had the ulcer closed 1 time in 10 years and it remained closed x1 week. History, exam and previous radiographs reviewed with the patient. Patient currently expressing his desire to avoid surgical intervention. Begin dressing changes with silver gel/gauze/ABD and cover dry. Obtain repeat radiographs of the right foot. Wound culture. Continue IV antibiotics per ID. Will determine further surgical vs. conservative treatment options with the patient and Dr. Swain pending further testing. (2) Cellulitis of right foot: Code(s): L03.115 - Cellulitis of right lower limb Status: Acute Assessment and Plan: Continue IV antibiotics per ID. History of Present Illness HPI Consult date: 03/06/20 Requesting physician: Tanner Enamorado MD Consult reason: other (RIGHT DFU ) Chief complaint: sepsis nstemi r/o covid Narrative: Orthopedic consult for this 64 year old male with a 10 year history of a right plantar diabetic foot ulcer with recurrent infections. Patient was initially admitted to [facility] after a fall. The patient was transferred from [facility] on 03/05 for sepsis, NSTEMI, and rule out COVID-19. Patient has since been evaluated by cardiology and it was determined his elevated troponins were related to volume depletion and septic shock. COVID testing pending. The patient was recently admitted to [facility] with cellulitis of the right foot with bacteremia and infection due to pasturella. He was discharged home on oral antibiotics under the direction of Dr. Jacobo which he was to complete on 02/28 per previous medical records. He was then to follow up with Dr. Fernandez, his fingerprint expert, as an outpatient. The patient completed the oral antibiotics and gradually noticed increased swelling/redness of the RLE. He was supposed to follow up with his PCP on 03/06. Per the patient, he has been suffering from this right plantar DFU for many years. He has underwent debridements, casting, grafting and consultations with orthopedics. He has refused reconstructive surgery at [facility] per patient. His main goal is to keep his foot and does not want to participate in treatments that will keep him off his feet because he feels it will directly affect his quality of life. Review of Systems Constitutional: Constitutional: Reports as per HPI and Denies chills Eyes: Eyes: Reports no additional eye complaints ENT: Denies dysphagia and Denies nasal congestion Cardiovascular: Cardiovascular: Denies chest pain, Reports pedal edema and Reports leg edema Comments: RLE Respiratory: Respiratory: Denies cough and Denies dyspnea Gastrointestinal: Gastrointestinal: Denies nausea and Denies vomiting Genitourinary: Genitourinary: Denies dysuria Musculoskeletal: Comments: Right foot pain/swelling Integumentary/Breasts: Comments: Large DFU right plantar foot Ulcer on the medial left great toe Neurologic: Reports numbness Comments: Inability to feel either foot Psychiatric: Psychiatric: Reports no additional psychiatric complaints
--- NOTE | 2020-03-06 15:51 | WPDINFPN2 ---
Progress Note: A&P Assessment and Plan (1) Septic shock: Code(s): A41.9 - Sepsis, unspecified organism; R65.21 - Severe sepsis with septic shock Status: Acute Assessment and Plan: 1. Septic shock due to gram negative bacteremia and infection, r foot source very likely 2. Recent Pasturella bacteremia, also r foot, treated, no OM suspected then 3. DM REC PipTazo # 2. F/U m icro from [facility]. Sees Dr. Fernandez for podiatry, though may need surgery while here. Subjective Date/time seen: 03/06/20 15:51 Interval history: no foot pain at rest, + tender with weight bearing Exam Narrative: Exam Narrative: afebrile. No pressors, BP high Const: General: no acute distress Resp: Effort & Inspection: normal respiratory effort Auscultation: clear to auscultation bilaterally Cardio: Rate: regular rate Rhythm: regular rhythm Heart sounds: no gallops and no murmurs GI: Inspection: non-distended GI Palp: Yes Soft to palpation Skin: General skin exam: normal color and no rashes or lesions noted Extrem: Other: r foot with charcot deformities, ulcer plantar aspect, edema 4+, mild erythema Objective Data Vital Signs Vital Signs: Vital Signs - 24 hr 03/05/20 16:00 03/05/20 18:00 03/05/20 20:00 Temperature 36.9 C 36.8 C Pulse Rate 88 91 82 Respiratory Rate 26 H 24 H Blood Pressure 120/62 113/62 Pulse Oximetry 98 94 03/05/20 22:00 03/06/20 00:00 03/06/20 02:00 Temperature 37.1 C Pulse Rate 86 80 51 L Respiratory Rate 25 H 24 H 20 Blood Pressure 120/57 L 117/68 98/61 L Pulse Oximetry 96 96 95 03/06/20 04:00 03/06/20 06:00 03/06/20 08:00 Temperature 36.8 C 36.8 C Pulse Rate 70 62 80 Respiratory Rate 23 H 22 H 18 Blood Pressure 117/63 115/60 128/70 Pulse Oximetry 95 94 96 03/06/20 10:00 03/06/20 12:00 03/06/20 14:00 Temperature 36.7 C Pulse Rate 84 81 82 Respiratory Rate 24 H 25 H 24 H Blood Pressure 126/68 122/65 118/61 Pulse Oximetry 92 94 95 Intake/Output Intake/Output: Intake & Output 03/03/20 03/04/20 03/05/20 03/06/20 23:59 23:59 23:59 23:59 Intake Total 1640 2369.9 Output Total 800 775 Balance 840 1594.9 Meds/Results Medications: Active Medications Generic Name Dose Route Start Last Admin Trade Name Freq PRN Reason Stop Dose Admin Dextrose 12.5 gm 03/05/20 08:35 Dextrose 50% Syringe IV PUSH PRN PRN Hypoglycemia Protocol Glucagon 1 mg 03/05/20 08:35 Glucagon For Inj IM PRN PRN Hypoglycemia Protocol Glucose 15 gm 03/05/20 08:35 Glutose 15 PO PRN PRN Hypoglycemia Protocol Heparin Sodium (Porcine) 5,000 units 03/05/20 18:00 03/06/20 05:32 Heparin Sodium SUB-Q 5,000 units Q12H KJ Administration Dextrose 1,000 mls @ 100 mls/hr 03/05/20 08:35 Dextrose 5% 1,000 Ml IVPB PRN PRN Hypoglycemia Protocol Vancomycin HCl 2,000 mg in 500 mls @ 250 mls/hr 03/06/20 08:00 03/06/20 12:42 Vancomycin 2,000 Mg/D5w 500 Ml IVPB Infused Q12H KJ Infusion Piperacillin/Tazobactam/Dextrose 3.375 gm in 50 mls @ 100 mls/hr 03/06/20 12:00 03/06/20 12:42 Zosyn 3.375 Gm/D5w 50ml Pm IVPB Infused Q6HR KJ Infusion Insulin Aspart 2 - 5 units 03/05/20 12:00 03/06/20 12:09 Novolog SUB-Q 2 units TIDWM KJ Administration Protocol Insulin Glargine 35 units 03/05/20 21:00 03/05/20 21:11 Lantus SUB-Q 35 units HS KJ Administration Insulin Glargine 45 units 03/06/20 09:00 03/06/20 08:27 Lantus SUB-Q 45 units DAILY KJ Administration Silver Nitrate 1 applic 03/06/20 09:00 03/06/20 12:10 Silvergel TOPICAL 1 applic DAILY KJ Administration Tramadol HCl 50 mg 03/05/20 17:02 03/05/20 23:57 Ultram PO 50 mg Q6H PRN Administration Pain Rated 4-6 Radiology Results: ITS Impressions Chest X-Ray 03/05/20 10:36 IMPRESSION: No active cardiopulmonary disease Labs Labs: Laboratory Results - last 2
--- NOTE | 2020-03-06 17:23 | PM.IMPN ---
Progress Note: A&P Assessment and Plan (1) Syncope: Code(s): R55 - Syncope and collapse Status: Acute Assessment and Plan: likley secondary to hypotension and septic shock cxr nil acute 03/06/20 17:23 Mathew Benitez is a 64 year old male initally admitted with nstemi, sepsis and covid rule out. pt was seen by cardiology, who felt his elevated troponins are not related to cardiac ischemia. Likely secondary to sepsis. Pt was here recently, pt is a diabetic. pt grew pasterulla in his blood cultures. finished his oral of antibitiocs and was discharged home. pt since discharge fell at home and collapsed. went to [facility] and was transfered here for higher level of care. Pts bp had been low since admission, pt was intially on iv heparin drip which has been stopped and dopamine drip which is weaned off. Pt is currently on iv fluids for hypotension and septic shock. Dopamine drip is weaned as his BP is improving, Pt has history of dm, charcot foot, hypertension, recently in hospital with r lower ext cellultis and dm foot infection. Pt lactate level was high 5.6 and now is normal, admitted again for septic shock most likely pasterulla. Seen by Dr. Jacobo recommending to continue zosyn until culture returns, will need to see his nurses superintendent upon discharge. Seen in icu attending and cardiology and ID, While at [facility] patient was tested for COVID-19 results are not back, will repeat test again. 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 involvement without evidence of necrosis Code(s): E11.621 - Type 2 diabetes mellitus with foot ulcer; L97.509 - Non-pressure chronic ulcer of other part of unspecified foot with unspecified severity Status: Acute Assessment and Plan: chronic problem (3) Insulin dependent type 2 diabetes mellitus: Code(s): E11.9 - Type 2 diabetes mellitus without complications; Z79.4 - exterminator termite (current) use of insulin Status: Acute Assessment and Plan: continue accuchecks, sliding scale and home lantus dosing (4) Sepsis: Qualifiers: Sepsis acute organ dysfunction status: without acute organ dysfunction Sepsis type: sepsis due to unspecified organism Qualified Code(s): A41.9 - Sepsis, unspecified organism Code(s): A41.9 - Sepsis, unspecified organism Status: Acute Assessment and Plan: Pt is weaned off dopamine drip, pt is on iv fluids, continue to hydrate await blood cultures pt is on iv vancomycin ad iv zosyn ID consulted (5) Cellulitis of right foot: Code(s): L03.115 - Cellulitis of right lower limb Status: Acute Assessment and Plan: pt is on iv vancomycin ad iv zosyn (6) DVT prophylaxis: Code(s): Z29.9 - Encounter for prophylactic measures, unspecified Status: Acute Assessment and Plan: continue heparin sub q (7) Hypertension: Qualifiers: Hypertension type: essential hypertension Qualified Code(s): I10 - Essential (primary) hypertension Code(s): I10 - Essential (primary) hypertension Status: Chronic Assessment and Plan: hold antihypertensive for now (8) Hepatitis C: Code(s): B19.20 - Unspecified viral hepatitis C without hepatic coma Status: Chronic Subjective Date/time seen: 03/06/20 17:23 Mathew Benitez is a 64 year old male initally admitted with nstemi, sepsis and covid rule out. pt was seen by cardiology, who felt his elevated troponins are not related to cardiac ischemia. Likely secondary to sepsis. Pt was here recently, pt is a diabetic. pt grew pasterulla in his blood cultures. finished his oral of antibitiocs and
--- NOTE | 2020-03-06 17:34 | PC.NURSE ---
This patient, Mathew Benitez, was transferred to [ ] on 03/06/20 at 1734. Personal belongings sent with patient. Belongings list checked and signed with receiving [ ]. Report given to [ GREGORY Jean @ 4525]. Appropriate documentation sent with patient.
--- NOTE | 2020-03-06 17:53 | PC.NURSE ---
pt transfers from ICU, a/o x3, placed on tele and on r.a.
[2020-03-06 18:01] LABS: Glucose Point of Care 192 (65-105)
--- NOTE | 2020-03-06 19:00 | PC.NURSE ---
Patient was tested for Covid-19 at [facility] and negative results were called in to this hospital per charge nurse Terrell Galeano and that there is no need for droplet precautions.
[2020-03-06] MEDS: TRAMADOL HCL 50 MG TABLET PO (19:06)
[2020-03-06] MEDS: INSULIN GLARGINE (*BKC) 100 UNITS/ML 35 UNITS SUB-Q (21:10)
[2020-03-06 22:30] LABS: Glucose Point of Care 253 (65-105)
[2020-03-07] VITALS (12 sets, daily range): BP systolic 134–154; BP diastolic 62–80; PULSE 72–94; RESP 16–20; TEMP 36.6–37.4; O2SAT 96–97
[2020-03-07 05:45] LABS: Basophils Percent Auto 0.6 % (0.2-1.2); Eosinophils Absolute Auto 0.1 K/mm3 (0-0.3); Eosinophils Percent Auto 0.8 % (0-4.4); Hematocrit 26.7 % (42.0-52.0); Hemoglobin 8.6 g/dL (14.0-18.0); Immature Granulocyte Absolute 0.06 K/mm3 (0.00-0.031); Immature Granulocyte Percent A 0.8 % (0-0.5); Lymphocytes Absolute Auto 1.07 K/mm3 (0.9-3.2); Lymphocytes Percent Auto 15.1 % (18.3-44.2); Mean Corpuscular HGB Conc 32.2 g/dl (32-36); Mean Corpuscular Hemoglobin 25.4 pg (26-34); Mean Platelet Volume 9.6 fl (7.4-10.4); Monocytes Absolute Auto 0.8 K/mm3 (0.1-0.6); Monocytes Percent Auto 10.7 % (2.6-8.5); Neutrophils Absolute Auto 5.1 K/mm3 (1.3-6.7); Platelet Count Result 354 k/mm3 (150-375); Red Blood Count 3.38 M/mm3 (4.6-6.20); Red Cell Distribution Width 15.5 % (11.5-14.5); White Blood Count 7.1 K/mm3 (4.5-10.0)
[2020-03-07 05:57] LABS: Blood Urea Nitrogen 18 mg/dL (9-20); Calcium 8.4 mg/dL (8.4-10.2); Carbon Dioxide 28 mmol/L (22-30); Chloride 101 mmol/L (98-107); Estimated CRCL calculation 110 ml/min; Estimated Glomerular Filt Rate > 60; Glucose 112 mg/dL (75-110); Potassium 3.6 mmol/L (3.4-5.0); Sodium 134 mmol/L (137-145)
[2020-03-07] MEDS: HEPARIN SODIUM 5,000 UNITS/ML VIAL 5000 UNITS SUB-Q ×2 (06:14→18:22)
--- NOTE | 2020-03-07 08:21 | PM.PNCARD ---
Progress Note: A&P Assessment and Plan (1) CKD (chronic kidney disease) stage 3, GFR 30-59 ml/min: Code(s): N18.3 - Chronic kidney disease, stage 3 (moderate) Status: Acute (2) Syncope: Code(s): R55 - Syncope and collapse Status: Acute Assessment and Plan: Probably related to volume depletion and septic shock. Off dopamine drip and BP is trending up off BP medications. (3) Elevated troponin: Code(s): R79.89 - Other specified abnormal findings of blood chemistry Status: Acute Assessment and Plan: Trended down. No clinical symptoms of ACS. EKG is unremarkable. Troponin could be elevated in setting of anemia, CKD, sepsis and hypotension. Obtain echo. Echo shows no wall motion abnormalities, no further cardiac workup is needed. (4) Hypertension: Qualifiers: Hypertension type: essential hypertension Qualified Code(s): I10 - Essential (primary) hypertension Code(s): I10 - Essential (primary) hypertension Status: Chronic Assessment and Plan: Restart BP medication as needed once BP is elevated. Restart Coreg 25 mg BID. (5) Sepsis: Qualifiers: Sepsis acute organ dysfunction status: without acute organ dysfunction Sepsis type: sepsis due to unspecified organism Qualified Code(s): A41.9 - Sepsis, unspecified organism Code(s): A41.9 - Sepsis, unspecified organism Status: Acute Assessment and Plan: On antibitiotics. ID following. Covid test is negative at [place], per patient. Subjective Date/time seen: 03/07/20 08:21 Denies chest pain or sob. Exam Const: General: comfortable and no acute distress Neck: Neck: no JVD Carotids: no bruits Resp: Effort & Inspection: normal respiratory effort Auscultation: no crackles, no rales, no rhonchi and no wheezes Cardio: Rate: regular rate Rhythm: regular rhythm Heart sounds: Murmur heart sound present (Systolic murmur III/ RICS) GI: Inspection: non-distended Neuro: Speech: normal speech Extrem: Right lower extremity: edema Left lower extremity: no edema Objective Data Vital Signs Vital Signs: Vital Signs - 24 hr 03/06/20 10:00 03/06/20 12:00 03/06/20 14:00 Temperature 98.1 F Pulse Rate 84 81 82 Respiratory Rate 24 H 25 H 24 H Blood Pressure 126/68 122/65 118/61 Pulse Oximetry 92 94 95 03/06/20 16:00 03/06/20 20:00 03/06/20 21:06 Temperature 98.7 F Pulse Rate 88 93 Respiratory Rate 27 H Blood Pressure 143/72 H Pulse Oximetry 95 93 03/06/20 22:00 03/07/20 00:00 03/07/20 02:00 Temperature 99.1 F 99.3 F Pulse Rate 96 82 94 Respiratory Rate 18 20 Blood Pressure 135/45 L 138/68 Pulse Oximetry 96 96 03/07/20 04:00 03/07/20 06:00 Temperature 97.9 F Pulse Rate 87 83 Respiratory Rate 20 Blood Pressure 141/63 H Pulse Oximetry 96 Intake/Output Intake/Output: Intake & Output 03/04/20 03/05/20 03/06/20 03/07/20 23:59 23:59 23:59 23:59 Intake Total 1640 3159.9 710 Output Total 800 2025 1000 Balance 840 1134.9 -290 Meds/Results Medications: Active Medications Generic Name Dose Route Start Last Admin Trade Name Freq PRN Reason Stop Dose Admin Dextrose 12.5 gm 03/05/20 08:35 Dextrose 50% Syringe IV PUSH PRN PRN Hypoglycemia Protocol Glucagon 1 mg 03/05/20 08:35 Glucagon For Inj IM PRN PRN Hypoglycemia Protocol Glucose 15 gm 03/05/20 08:35 Glutose 15 PO PRN PRN Hypoglycemia Protocol Heparin Sodium (Porcine) 5,000 units 03/05/20 18:00 03/07/20 06:14 Heparin Sodium SUB-Q 5,000 units Q12H KJ Administration Dextrose 1,000 mls @ 100 mls/hr 03/05/20 08:35 Dextrose 5% 1,000 Ml IVPB PRN PRN Hypoglycemia Protocol Piperacillin/Tazobactam/Dextrose 3.375 gm in 50 mls @ 100 mls/hr 03/06/20 12:00 03/07/20 06:14 Zosyn 3.375 Gm/D5w 50ml Pm IVPB 100 mls/hr Q6HR KJ Administration Insulin Aspart 2 - 5 unit
[2020-03-07 09:07] LABS: Glucose Point of Care 109 (65-105)
[2020-03-07] MEDS: INSULIN GLARGINE (*BKC) 100 UNITS/ML 45 UNITS SUB-Q (09:18)
[2020-03-07] MEDS: carvediloL 25 MG TABLET PO ×2 (10:53→21:13)
[2020-03-07] MEDS: SILVERGEL (ELTA) 45 ML 1 APPLIC TOPICAL (10:54)
[2020-03-07 12:11] LABS: Glucose Point of Care 140 (65-105)
[2020-03-07] MEDS: TRAMADOL HCL 50 MG TABLET PO (12:31)
--- NOTE | 2020-03-07 12:51 | PM.IMPN ---
Progress Note: A&P Assessment and Plan (1) Cellulitis of right foot: Code(s): L03.115 - Cellulitis of right lower limb Status: Acute Assessment and Plan: Initially treated with IV vancomycin and Zosyn 03/05-03/06 (vanc d/c'ed) Zosyn day 2 Blood cultres negative as of 03/07 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 involvement without evidence of necrosis Code(s): E11.621 - Type 2 diabetes mellitus with foot ulcer; L97.509 - Non-pressure chronic ulcer of other part of unspecified foot with unspecified severity Status: Acute Assessment and Plan: Likely entry point for infection Continue wound care (3) Insulin dependent type 2 diabetes mellitus: Code(s): E11.9 - Type 2 diabetes mellitus without complications; Z79.4 - termite technician (current) use of insulin Status: Acute Assessment and Plan: Continue accuchecks, sliding scale and Lantus (4) Hypertension: Qualifiers: Hypertension type: essential hypertension Qualified Code(s): I10 - Essential (primary) hypertension Code(s): I10 - Essential (primary) hypertension Status: Chronic Assessment and Plan: Continue to monitor without antihypertensives (5) Hepatitis C: Qualifiers: Viral hepatitis chronicity: chronic Hepatic coma status: without hepatic coma Qualified Code(s): B18.2 - Chronic viral hepatitis C Code(s): B19.20 - Unspecified viral hepatitis C without hepatic coma Status: Chronic (6) Syncope: Qualifiers: Syncope type: unspecified Qualified Code(s): R55 - Syncope and collapse Code(s): R55 - Syncope and collapse Status: Acute Assessment and Plan: likley secondary to hypotension and septic shock resolved (7) Sepsis: Qualifiers: Sepsis acute organ dysfunction status: without acute organ dysfunction Sepsis type: sepsis due to unspecified organism Qualified Code(s): A41.9 - Sepsis, unspecified organism Code(s): A41.9 - Sepsis, unspecified organism Status: Acute Assessment and Plan: Pt was weaned off dopamine drip and iv fluids Resolved Subjective Date/time seen: 03/07/20 12:51 Interval history: Admitted for diabetic right foot infection with septic shock and pasteurella bacteremia. 03/07. Denied pain. Tolerating diet. No chest pain or shortness of breath. No edema. No GI or complaints. No abnormal bleeding. No fevers or chills. Review of Systems Review of Systems: All systems reviewed & are unremarkable except as noted in HPI and below Exam Narrative: Exam Narrative: HEENT: EOMI, PERRL, sclerae nonicteric, pharyngeal mucosa pink and intact NECK: No JVD CHEST: Clear to auscultation. Normal effort. HEART: NL S1/S2, regular, no murmur ABDOMEN: BS+, soft, nontender, no mass, no bruits EXTREMITIES: No cyanosis, edema, or clubbing. Right foot wound dressing noted. NEUROLOGIC: CN intact and symmetric to inspection. MUSCULOSKELETAL: Tone and strength symmetric. PSYCH: Alert. Oriented to person, place, and time. Objective Data Vital Signs Vital Signs: Vital Signs - 24 hr 03/06/20 14:00 03/06/20 16:00 03/06/20 20:00 Temperature 98.7 F Pulse Rate 82 88 93 Respiratory Rate 24 H 27 H Blood Pressure 118/61 143/72 H Pulse Oximetry 95 95 03/06/20 21:06 03/06/20 22:00 03/07/20 00:00 Temperature 99.1 F Pulse Rate 96 82 Respiratory Rate 18 Blood Pressure 135/45 L Pulse Oximetry 93 96 03/07/20 02:00 03/07/20 04:00 03/07/20 06:00 Temperature 99.3 F 97.9 F Pulse Rate 94 87 83 Respiratory Rate 20 20 Blood Pressure 138/68 141/63 H Puls
--- NOTE | 2020-03-07 13:48 | WPDINFPN2 ---
Progress Note: A&P Assessment and Plan (1) Septic shock: Code(s): A41.9 - Sepsis, unspecified organism; R65.21 - Severe sepsis with septic shock Status: Acute Assessment and Plan: 1. Septic shock due to gram negative bacteremia and infection, r foot source 2. Pasturella bacteremia with infection, recurrent, no osteomyelitis on repeat plain films 3. DM REC PipTazo # 3. f/u susceptibilities, anticipate 2-4 weeks IV antibiotics. Sees Dr. Fernandez for podiatry, though may need surgery while here. Subjective Date/time seen: 03/07/20 13:48 Interval history: no new complaints Exam Narrative: Exam Narrative: afebrile Const: General: no acute distress Resp: Effort & Inspection: normal respiratory effort Auscultation: clear to auscultation bilaterally Skin: General skin exam: no rashes or lesions noted Extrem: Right lower extremity: edema Other: erythema Objective Data Vital Signs Vital Signs: Vital Signs - 24 hr 03/06/20 14:00 03/06/20 16:00 03/06/20 20:00 Temperature 37.1 C Pulse Rate 82 88 93 Respiratory Rate 24 H 27 H Blood Pressure 118/61 143/72 H Pulse Oximetry 95 95 03/06/20 21:06 03/06/20 22:00 03/07/20 00:00 Temperature 37.3 C Pulse Rate 96 82 Respiratory Rate 18 Blood Pressure 135/45 L Pulse Oximetry 93 96 03/07/20 02:00 03/07/20 04:00 03/07/20 06:00 Temperature 37.4 C 36.6 C Pulse Rate 94 87 83 Respiratory Rate 20 20 Blood Pressure 138/68 141/63 H Pulse Oximetry 96 96 03/07/20 10:40 03/07/20 10:53 Temperature 36.6 C Pulse Rate 85 88 Respiratory Rate 16 Blood Pressure 134/62 Pulse Oximetry 96 Intake/Output Intake/Output: Intake & Output 03/04/20 03/05/20 03/06/20 03/07/20 23:59 23:59 23:59 23:59 Intake Total 1640 3159.9 1000 Output Total 800 5 1000 Balance 840 1134.9 0 Meds/Results Medications: Active Medications Generic Name Dose Route Start Last Admin Trade Name Freq PRN Reason Stop Dose Admin Carvedilol 25 mg 03/07/20 09:00 03/07/20 10:53 Coreg PO 25 mg Q12HR KJ Administration Dextrose 12.5 gm 03/05/20 08:35 Dextrose 50% Syringe IV PUSH PRN PRN Hypoglycemia Protocol Glucagon 1 mg 03/05/20 08:35 Glucagon For Inj IM PRN PRN Hypoglycemia Protocol Glucose 15 gm 03/05/20 08:35 Glutose 15 PO PRN PRN Hypoglycemia Protocol Heparin Sodium (Porcine) 5,000 units 03/05/20 18:00 03/07/20 06:14 Heparin Sodium SUB-Q 5,000 units Q12H KJ Administration Dextrose 1,000 mls @ 100 mls/hr 03/05/20 08:35 Dextrose 5% 1,000 Ml IVPB PRN PRN Hypoglycemia Protocol Piperacillin/Tazobactam/Dextrose 3.375 gm in 50 mls @ 100 mls/hr 03/06/20 12:00 03/07/20 12:05 Zosyn 3.375 Gm/D5w 50ml Pm IVPB 100 mls/hr Q6HR KJ Administration Insulin Aspart 2 - 5 units 03/05/20 12:00 03/07/20 12:07 Novolog SUB-Q Not Given TIDWM KJ Protocol Insulin Glargine 35 units 03/05/20 21:00 03/06/20 21:10 Lantus SUB-Q 35 units HS KJ Administration Insulin Glargine 45 units 03/06/20 09:00 03/07/20 09:18 Lantus SUB-Q 45 units DAILY KJ Administration Saccharomyces Boulardii 250 mg 03/07/20 17:00 Florastor PO BID KJ Silver Nitrate 1 applic 03/06/20 09:00 03/07/20 10:54 Silvergel TOPICAL 1 applic DAILY KJ Administration Tramadol HCl 50 mg 03/05/20 17:02 03/07/20 12:31 Ultram PO 50 mg Q6H PRN Administration Pain Rated 4-6 Radiology Results: ITS Impressions Chest X-Ray 03/05/20 10:36 IMPRESSION: No active cardiopulmonary disease Foot X-Ray 03/06/20 17:10 IMPRESSION: 1. Findings consistent with chronic neuropathic foot. 2. Large soft tissue ulceration. Soft tissue swelling. Labs Labs: Laboratory Results - last 24 hr 03/06/20 03/06/20 03/07/20 17:59 21:08 05:15 WBC 7.1 RBC 3.38 L Hgb 8.6 L Hct 26.7 L MCV
--- NOTE | 2020-03-07 13:54 | PM.PNORT ---
Progress Note: A&P Assessment and Plan (1) Diabetic foot ulcer: Qualifiers: Diabetes mellitus type: type 2 Diabetic foot ulcer location: midfoot Laterality: right Non-pressure ulcer stage: with muscle involvement without evidence of necrosis Qualified Code(s): E11.621 - Type 2 diabetes mellitus with foot ulcer; L97.415 - Non-pressure chronic ulcer of right heel and midfoot with muscle involvement without evidence of necrosis Code(s): E11.621 - Type 2 diabetes mellitus with foot ulcer; L97.509 - Non-pressure chronic ulcer of other part of unspecified foot with unspecified severity Status: Acute Assessment and Plan: Chronic diabetic foot ulcer with fluctuations in size and drainage. Recurrent episodes of cellulitis. Orthopedic consultation reviewed. Agree with assessment and plan. History, physical exam and radiographs reviewed with the patient. Operative and non operative treatment options as well as definitive treatment options with amputation discussed with patient in detail. He has declined any surgical treatment at this time. Continue with antibiotics and local wound care. May use fracture boot fot protected weight bearing. Patient declined TCC. May follow up with his opto mechanical engineer as an outpatient. Subjective Subjective Date/Time Seen: 03/07/20 13:54 Per the patient, he has been suffering from this right plantar DFU for many years. He has underwent debridements, casting, grafting and consultations with orthopedics. He has refused reconstructive surgery at [facility] per patient. His main goal is to keep his foot and does not want to participate in treatments that will keep him off his feet because he feels it will directly affect his quality of life. No new complaints or changes overnight. Review of Systems Constitutional: Constitutional: Reports as per HPI and Denies chills Eyes: Eyes: Reports no additional eye complaints ENT: Denies dysphagia and Denies nasal congestion Cardiovascular: Cardiovascular: Denies chest pain, Reports pedal edema and Reports leg edema Comments: RLE Respiratory: Respiratory: Denies cough and Denies dyspnea Gastrointestinal: Gastrointestinal: Denies nausea and Denies vomiting Genitourinary: Genitourinary: Denies dysuria Musculoskeletal: Comments: Right foot pain/swelling Integumentary/Breasts: Comments: Large DFU right plantar foot Ulcer on the medial left great toe Neurologic: Reports numbness Comments: Inability to feel either foot Psychiatric: Psychiatric: Reports no additional psychiatric complaints Exam Const: General: comfortable and no acute distress HENMT: Mouth: Yes moist mucous membranes Eyes: General: appearance normal, both eyes and all related structures Neck: Neck: supple and no JVD Resp: Effort & Inspection: normal respiratory effort Cardio: Rate: regular rate Rhythm: regular rhythm GI: GI Palp: Yes Soft to palpation and No Tenderness to palpation present (GI) Other: obese Skin: Wounds: wounds noted (Right Plantar DFU/ Left Hallux DFU ) Other: Ulcer on the plantar aspect of the right midfoot measures 4.0x5.5x0.7cm, 100% red/pink wound bed. Large callus surrounding. Unable to probe to bone. Copious amount of serousanguinous fluid. No odor noted. Surrounding tissue with swelling. Erythema from dorsal midfoot to ankle. Ulcer on the medial aspect of the left hallux measures 2.0x2.0x0.2cm, large amount of callus surrounding wound bed. No drainage noted. Neuro: General: No gait normal Cognition (Neuro): normal cognition Motor exam (neuro): strength not 5/5 throughout and Abnormal motor strength present (decreased b/l LE ) Extrem: Right lower extremity: ankle and foot (unable to palpate pedal pulses ) Left lower extremity: foot Other: See skin assessment for ulcer dimensions/details. Right foot with severe Charcot. Erythema from dorsal midfoot to ankle. 4+ pitting edema RLE. 3+ pitting edema LLE. Unable to palpate pedal pu
[2020-03-07 14:46] LABS: SARS-CoV-2 RNA PCR Negative
[2020-03-07 18:04] LABS: Glucose Point of Care 152 (65-105)
[2020-03-07] MEDS: SACCHAROMYCES BOULARDII 250 MG CAPSULE PO (18:21)
--- NOTE | 2020-03-07 20:00 | PC.NURSE ---
Patient educated on the importance of a bed alarm and his safety but patient refused the bed alarm regardless.
[2020-03-07 20:41] LABS: Glucose Point of Care 180 (65-105)
[2020-03-07] MEDS: INSULIN GLARGINE (*BKC) 100 UNITS/ML 35 UNITS SUB-Q (21:16)
[2020-03-08] VITALS (8 sets, daily range): BP systolic 112–151; BP diastolic 48–66; PULSE 77–92; RESP 16–22; TEMP 36.5–37.3; O2SAT 94–97
[2020-03-08 05:34] LABS: Blood Urea Nitrogen 13 mg/dL (9-20); Calcium 8.3 mg/dL (8.4-10.2); Carbon Dioxide 31 mmol/L (22-30); Chloride 99 mmol/L (98-107); Estimated CRCL calculation 110 ml/min; Estimated Glomerular Filt Rate > 60; Glucose 83 mg/dL (75-110); Potassium 3.3 mmol/L (3.4-5.0); Sodium 134 mmol/L (137-145)
[2020-03-08 05:39] LABS: Basophils Percent Auto 0.5 % (0.2-1.2); Eosinophils Absolute Auto 0.1 K/mm3 (0-0.3); Hematocrit 24.9 % (42.0-52.0); Hemoglobin 8.1 g/dL (14.0-18.0); Immature Granulocyte Absolute 0.09 K/mm3 (0.00-0.031); Immature Granulocyte Percent A 1.2 % (0-0.5); Lymphocytes Absolute Auto 1.29 K/mm3 (0.9-3.2); Lymphocytes Percent Auto 16.7 % (18.3-44.2); Mean Corpuscular HGB Conc 32.5 g/dl (32-36); Mean Corpuscular Hemoglobin 25.2 pg (26-34); Mean Corpuscular Volume 77.6 fl (80-100); Mean Platelet Volume 9.3 fl (7.4-10.4); Monocytes Absolute Auto 0.8 K/mm3 (0.1-0.6); Neutrophils Absolute Auto 5.5 K/mm3 (1.3-6.7); Neutrophils Percent Auto 70.6 % (45.5-73.1); Platelet Count Result 346 k/mm3 (150-375); Red Blood Count 3.21 M/mm3 (4.6-6.20); Red Cell Distribution Width 15.4 % (11.5-14.5); White Blood Count 7.7 K/mm3 (4.5-10.0)
[2020-03-08] MEDS: HEPARIN SODIUM 5,000 UNITS/ML VIAL 5000 UNITS SUB-Q ×2 (05:53→17:57)
--- NOTE | 2020-03-08 07:55 | PM.PNCARD ---
Progress Note: A&P Assessment and Plan (1) CKD (chronic kidney disease) stage 3, GFR 30-59 ml/min: Code(s): N18.3 - Chronic kidney disease, stage 3 (moderate) Status: Acute Assessment and Plan: Replete potassium. (2) Syncope: Qualifiers: Syncope type: unspecified Qualified Code(s): R55 - Syncope and collapse Code(s): R55 - Syncope and collapse Status: Acute Assessment and Plan: Probably related to volume depletion and septic shock. Off dopamine drip and BP is trending up off BP medications. (3) Elevated troponin: Code(s): R79.89 - Other specified abnormal findings of blood chemistry Status: Acute Assessment and Plan: Trended down. No clinical symptoms of ACS. EKG is unremarkable. Troponin could be elevated in setting of anemia, CKD, sepsis and hypotension. Echo shows no wall motion abnormalities, no further cardiac workup is needed. (4) Hypertension: Qualifiers: Hypertension type: essential hypertension Qualified Code(s): I10 - Essential (primary) hypertension Code(s): I10 - Essential (primary) hypertension Status: Chronic Assessment and Plan: Restart BP medication as needed once BP is elevated. Coreg restarted yesterday and restart Valsartan 80 mg daily. (5) Sepsis: Qualifiers: Sepsis acute organ dysfunction status: without acute organ dysfunction Sepsis type: sepsis due to unspecified organism Qualified Code(s): A41.9 - Sepsis, unspecified organism Code(s): A41.9 - Sepsis, unspecified organism Status: Acute Assessment and Plan: On antibitiotics. ID following. Covid test is negative. Subjective Date/time seen: 03/08/20 07:55 Denies chest pain or sob. Exam Const: General: comfortable and no acute distress Neck: Neck: no JVD Carotids: no bruits Resp: Auscultation: clear to auscultation bilaterally, no crackles, no rales, no rhonchi and no wheezes Cardio: Rate: regular rate Rhythm: regular rhythm Heart sounds: no murmurs GI: Inspection: non-distended Extrem: Right lower extremity: edema Left lower extremity: no edema Objective Data Vital Signs Vital Signs: Vital Signs - 24 hr 03/07/20 10:40 03/07/20 10:53 03/07/20 12:00 Temperature 97.8 F Pulse Rate 85 88 72 Respiratory Rate 16 Blood Pressure 134/62 Pulse Oximetry 96 03/07/20 14:36 03/07/20 20:12 03/07/20 21:13 Temperature 98.0 F Pulse Rate 82 86 86 Respiratory Rate 16 Blood Pressure 147/67 H 148/79 H Pulse Oximetry 97 03/07/20 22:00 03/08/20 02:00 03/08/20 06:00 Temperature 99.1 F 98.6 F 98.4 F Pulse Rate 85 78 78 Respiratory Rate 16 16 16 Blood Pressure 154/80 H 112/48 L 136/65 Pulse Oximetry 96 95 94 Intake/Output Intake/Output: Intake & Output 03/05/20 03/06/20 03/07/20 03/08/20 23:59 23:59 23:59 23:59 Intake Total 1640 3159.9 3080 590 Output Total 800 2025 2200 1200 Balance 840 1134.9 880 -610 Meds/Results Medications: Active Medications Generic Name Dose Route Start Last Admin Trade Name Freq PRN Reason Stop Dose Admin Carvedilol 25 mg 03/07/20 09:00 03/07/20 21:13 Coreg PO 25 mg Q12HR KJ Administration Dextrose 12.5 gm 03/05/20 08:35 Dextrose 50% Syringe IV PUSH PRN PRN Hypoglycemia Protocol Glucagon 1 mg 03/05/20 08:35 Glucagon For Inj IM PRN PRN Hypoglycemia Protocol Glucose 15 gm 03/05/20 08:35 Glutose 15 PO PRN PRN Hypoglycemia Protocol Heparin Sodium (Porcine) 5,000 units 03/05/20 18:00 03/08/20 05:53 Heparin Sodium SUB-Q 5,000 units Q12H KJ Administration Dextrose 1,000 mls @ 100 mls/hr 03/05/20 08:35 Dextrose 5% 1,000 Ml IVPB PRN PRN Hypoglycemia Protocol Piperacillin/Tazobactam/Dextrose 3.375 gm in 50 mls @ 100 mls/hr 03/06/20 12:00 03/08/20 05:49 Zosyn 3.375 Gm/D5w 50ml Pm IVPB 100 mls/hr Q6HR KJ Administration Insu
[2020-03-08] MEDS: TRAMADOL HCL 50 MG TABLET PO ×2 (08:34→20:07)
[2020-03-08 09:20] LABS: Glucose Point of Care 88 (65-105)
[2020-03-08] MEDS: POTASSIUM CHLORIDE 20 MEQ TABLET 40 MEQ PO (09:31)
[2020-03-08] MEDS: INSULIN GLARGINE (*BKC) 100 UNITS/ML 45 UNITS SUB-Q (09:31)
[2020-03-08] MEDS: carvediloL 25 MG TABLET PO ×2 (09:32→20:12)
[2020-03-08] MEDS: SACCHAROMYCES BOULARDII 250 MG CAPSULE PO ×2 (09:32→17:57)
[2020-03-08] MEDS: VALSARTAN 80 MG TABLET PO (09:33)
--- NOTE | 2020-03-08 11:20 | PM.IMPN ---
Progress Note: A&P Assessment and Plan (1) Cellulitis of right foot: Code(s): L03.115 - Cellulitis of right lower limb Status: Acute Assessment and Plan: Initially treated with IV vancomycin and Zosyn 03/05-03/06 (vanc d/c'ed) Zosyn day 3 Blood cultres negative as of 03/08 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 involvement without evidence of necrosis Code(s): E11.621 - Type 2 diabetes mellitus with foot ulcer; L97.509 - Non-pressure chronic ulcer of other part of unspecified foot with unspecified severity Status: Acute Assessment and Plan: Likely entry point for infection Continue wound care (3) Insulin dependent type 2 diabetes mellitus: Code(s): E11.9 - Type 2 diabetes mellitus without complications; Z79.4 - adjunct faculty for medical terminology (current) use of insulin Status: Acute Assessment and Plan: Continue accuchecks, sliding scale and Lantus (4) Hypertension: Qualifiers: Hypertension type: essential hypertension Qualified Code(s): I10 - Essential (primary) hypertension Code(s): I10 - Essential (primary) hypertension Status: Chronic Assessment and Plan: Continue to monitor without antihypertensives (5) Hepatitis C: Qualifiers: Viral hepatitis chronicity: chronic Hepatic coma status: without hepatic coma Qualified Code(s): B18.2 - Chronic viral hepatitis C Code(s): B19.20 - Unspecified viral hepatitis C without hepatic coma Status: Chronic (6) Syncope: Qualifiers: Syncope type: unspecified Qualified Code(s): R55 - Syncope and collapse Code(s): R55 - Syncope and collapse Status: Acute Assessment and Plan: likley secondary to hypotension and septic shock resolved (7) Sepsis: Qualifiers: Sepsis acute organ dysfunction status: without acute organ dysfunction Sepsis type: sepsis due to unspecified organism Qualified Code(s): A41.9 - Sepsis, unspecified organism Code(s): A41.9 - Sepsis, unspecified organism Status: Acute Assessment and Plan: Resolved Subjective Date/time seen: 03/08/20 11:20 Interval history: Admitted for diabetic right foot infection with septic shock and pasteurella bacteremia. 03/08 Denied pain. Tolerating diet. No chest pain or shortness of breath. No edema. No GI or complaints. No abnormal bleeding. No fevers or chills. Exam Narrative: Exam Narrative: HEENT: EOMI, PERRL, sclerae nonicteric, pharyngeal mucosa pink and intact NECK: No JVD CHEST: Clear to auscultation. Normal effort. HEART: NL S1/S2, regular, no murmur ABDOMEN: BS+, soft, nontender, no mass, no bruits EXTREMITIES: No cyanosis, edema, or clubbing. Right foot wound dressing noted. NEUROLOGIC: CN intact and symmetric to inspection. MUSCULOSKELETAL: Tone and strength symmetric. PSYCH: Alert. Oriented to person, place, and time. Objective Data Vital Signs Vital Signs: Vital Signs - 24 hr 03/07/20 12:00 03/07/20 14:36 03/07/20 20:12 Temperature 98.0 F Pulse Rate 72 82 86 Respiratory Rate 16 Blood Pressure 147/67 H 148/79 H Pulse Oximetry 97 03/07/20 21:13 03/07/20 22:00 03/08/20 02:00 Temperature 99.1 F 98.6 F Pulse Rate 86 85 78 Respiratory Rate 16 16 Blood Pressure 154/80 H 112/48 L Pulse Oximetry 96 95 03/08/20 06:00 03/08/20 09:32 03/08/20 10:00 Temperature 98.4 F 97.7 F Pulse Rate 78 78 81 Respiratory Rate 16 20 Blood Pressure 136/65 128/55 L Pulse Oximetry 94 96 Intake/Output Intake/Output: Intake & Output 03/05/20 03/06/20 03/07/20 03/08/20 23:59 23:59 23:59 23:59 Intake Total 16
[2020-03-08] MEDS: SILVERGEL (ELTA) 45 ML 1 APPLIC TOPICAL (11:34)
[2020-03-08 13:06] LABS: Glucose Point of Care 170 (65-105)
--- NOTE | 2020-03-08 14:01 | WPDINFPN2 ---
Progress Note: A&P Assessment and Plan (1) Septic shock: Code(s): A41.9 - Sepsis, unspecified organism; R65.21 - Severe sepsis with septic shock Status: Acute Assessment and Plan: 1. 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 Improving. Meropenem susceptible, per [facility] lab. 2. Charcot foot 3. DM REC PipTazo # 4, stop and place on ceftriaxone # 1/ 24 days through 03/31. He declines surgical intervention to me and to Dr. Swain. Sees Dr. Fernandez for podiatry. Ok discharge planning, he has had prior PICC and home IV therapy. Will use Ctx, rather than a more narrow spectrum agent such as Ampicillin, due to ease of home administration. Subjective Date/time seen: 03/08/20 14:01 Interval history: no news complaints Exam Narrative: Exam Narrative: afebrile Const: General: no acute distress Eyes: General: appearance normal, both eyes and all related structures Resp: Effort & Inspection: normal respiratory effort Auscultation: clear to auscultation bilaterally Cardio: Rate: regular rate Rhythm: regular rhythm Heart sounds: no murmurs GI: Inspection: non-distended GI Palp: Yes Soft to palpation and No Tenderness to palpation present (GI) Skin: General skin exam: normal color and no rashes or lesions noted Extrem: Other: foot edema no proximal tenderness, + erythema which is less prominent today Objective Data Vital Signs Vital Signs: Vital Signs - 24 hr 03/07/20 14:36 03/07/20 20:12 03/07/20 21:13 Temperature 36.7 C Pulse Rate 82 86 86 Respiratory Rate 16 Blood Pressure 147/67 H 148/79 H Pulse Oximetry 97 03/07/20 22:00 03/08/20 02:00 03/08/20 06:00 Temperature 37.3 C 37.0 C 36.9 C Pulse Rate 85 78 78 Respiratory Rate 16 16 16 Blood Pressure 154/80 H 112/48 L 136/65 Pulse Oximetry 96 95 94 03/08/20 09:32 03/08/20 10:00 Temperature 36.5 C Pulse Rate 78 81 Respiratory Rate 20 Blood Pressure 128/55 L Pulse Oximetry 96 Intake/Output Intake/Output: Intake & Output 03/05/20 03/06/20 03/07/2013/20 23:59 23:59 23:59 23:59 Intake Total 1640 3159.9 3080 810 Output Total 800 5 2200 1200 Balance 840 1134.9 880 -390 Meds/Results Medications: Active Medications Generic Name Dose Route Start Last Admin Trade Name Freq PRN Reason Stop Dose Admin Carvedilol 25 mg 03/07/20 09:00 03/08/20 09:32 Coreg PO 25 mg Q12HR KJ Administration Dextrose 12.5 gm 03/05/20 08:35 Dextrose 50% Syringe IV PUSH PRN PRN Hypoglycemia Protocol Glucagon 1 mg 03/05/20 08:35 Glucagon For Inj IM PRN PRN Hypoglycemia Protocol Glucose 15 gm 03/05/20 08:35 Glutose 15 PO PRN PRN Hypoglycemia Protocol Heparin Sodium (Porcine) 5,000 units 03/05/20 18:00 03/08/20 05:53 Heparin Sodium SUB-Q 5,000 units Q12H KJ Administration Dextrose 1,000 mls @ 100 mls/hr 03/05/20 08:35 Dextrose 5% 1,000 Ml IVPB PRN PRN Hypoglycemia Protocol Piperacillin/Tazobactam/Dextrose 3.375 gm in 50 mls @ 100 mls/hr 03/06/20 12:00 03/08/20 12:08 Zosyn 3.375 Gm/D5w 50ml Pm IVPB Infused Q6HR KJ Infusion Insulin Aspart 2 - 5 units 03/05/20 12:00 03/08/20 12:27 Novolog SUB-Q Not Given TIDWM KJ Protocol Insulin Glargine 35 units 03/05/20 21:00 03/07/20 21:16 Lantus SUB-Q 35 units HS KJ Administration Insulin Glargine 45 units 03/06/20 09:00 03/08/20 09:31 Lantus SUB-Q 45 units DAILY KJ Administration Saccharomyces Boulardii 250 mg 03/07/20 17:00 03/08/20 09:32 Florastor PO 250 mg BID KJ Administration Silver Nitrate 1 applic 03/06/20 09:00 03/08/20 11:34 Silvergel TOPICAL 1 applic DAILY KJ Administration Tramadol HCl 50 mg 03/05/20 17:02 03/08/20 08:34 Ultram PO 50 mg Q6H PRN Administration Pain Rated 4-6 Valsartan 80 mg 03/08/20 09:00 03/08/20 09:33 Diovan PO 80 mg
[2020-03-08 17:41] LABS: Glucose Point of Care 191 (65-105)
[2020-03-08] MEDS: INSULIN GLARGINE (*BKC) 100 UNITS/ML 35 UNITS SUB-Q (20:11)
[2020-03-08 21:11] LABS: Glucose Point of Care 239 (65-105)
[2020-03-09 02:00] VITALS: BP 132/64; PULSE 73; RESP 20; TEMP 36.7; O2SAT 94
[2020-03-09] MEDS: HEPARIN SODIUM 5,000 UNITS/ML VIAL 5000 UNITS SUB-Q (05:51)
[2020-03-09 06:00] VITALS: BP 130/50; PULSE 72; RESP 20; TEMP 36.4; O2SAT 95
[2020-03-09 07:12] LABS: Basophils Absolute Auto 0.1 K/mm3 (0.0-0.1); Basophils Percent Auto 0.6 % (0.2-1.2); Eosinophils Absolute Auto 0.1 K/mm3 (0-0.3); Eosinophils Percent Auto 1.5 % (0-4.4); Hematocrit 26.4 % (42.0-52.0); Hemoglobin 8.4 g/dL (14.0-18.0); Immature Granulocyte Absolute 0.18 K/mm3 (0.00-0.031); Immature Granulocyte Percent A 2.1 % (0-0.5); Lymphocytes Percent Auto 16.6 % (18.3-44.2); Mean Corpuscular HGB Conc 31.8 g/dl (32-36); Mean Corpuscular Hemoglobin 25.2 pg (26-34); Mean Corpuscular Volume 79.3 fl (80-100); Mean Platelet Volume 9.7 fl (7.4-10.4); Monocytes Absolute Auto 0.8 K/mm3 (0.1-0.6); Monocytes Percent Auto 9.3 % (2.6-8.5); Neutrophils Absolute Auto 5.9 K/mm3 (1.3-6.7); Neutrophils Percent Auto 69.9 % (45.5-73.1); Platelet Count Result 346 k/mm3 (150-375); Red Blood Count 3.33 M/mm3 (4.6-6.20); Red Cell Distribution Width 15.6 % (11.5-14.5); White Blood Count 8.4 K/mm3 (4.5-10.0)
[2020-03-09 07:27] LABS: Blood Urea Nitrogen 12 mg/dL (9-20); Calcium 8.4 mg/dL (8.4-10.2); Carbon Dioxide 30 mmol/L (22-30); Chloride 99 mmol/L (98-107); Estimated CRCL calculation 124 ml/min; Estimated Glomerular Filt Rate > 60; Glucose 84 mg/dL (75-110); Potassium 3.5 mmol/L (3.4-5.0); Sodium 135 mmol/L (137-145)
[2020-03-09 08:02] LABS: Glucose Point of Care 71 (65-105)
[2020-03-09 08:56] VITALS: PULSE 72
[2020-03-09] MEDS: carvediloL 25 MG TABLET PO (08:56)
[2020-03-09] MEDS: SACCHAROMYCES BOULARDII 250 MG CAPSULE PO (08:57)
[2020-03-09] MEDS: VALSARTAN 160 MG TABLET PO (08:58)
[2020-03-09] MEDS: SILVERGEL (ELTA) 45 ML 1 APPLIC TOPICAL (08:58)
--- NOTE | 2020-03-09 09:12 | PM.PNCARD ---
Progress Note: A&P Assessment and Plan (1) CKD (chronic kidney disease) stage 3, GFR 30-59 ml/min: Code(s): N18.3 - Chronic kidney disease, stage 3 (moderate) Status: Acute Assessment and Plan: Replete potassium. (2) Syncope: Qualifiers: Syncope type: unspecified Qualified Code(s): R55 - Syncope and collapse Code(s): R55 - Syncope and collapse Status: Acute Assessment and Plan: Probably related to volume depletion and septic shock. Off dopamine drip and BP is trending up off BP medications. (3) Elevated troponin: Code(s): R79.89 - Other specified abnormal findings of blood chemistry Status: Acute Assessment and Plan: Trended down. No clinical symptoms of ACS. EKG is unremarkable. Troponin could be elevated in setting of anemia, CKD, sepsis and hypotension. Echo shows no wall motion abnormalities, no further cardiac workup is needed. (4) Hypertension: Qualifiers: Hypertension type: essential hypertension Qualified Code(s): I10 - Essential (primary) hypertension Code(s): I10 - Essential (primary) hypertension Status: Chronic Assessment and Plan: Restart BP medication as needed once BP is elevated. Coreg restarted and increase Valsartan 160 mg daily. (5) Sepsis: Qualifiers: Sepsis acute organ dysfunction status: without acute organ dysfunction Sepsis type: sepsis due to unspecified organism Qualified Code(s): A41.9 - Sepsis, unspecified organism Code(s): A41.9 - Sepsis, unspecified organism Status: Acute Assessment and Plan: On antibitiotics. ID following. Covid test is negative. Subjective Date/time seen: 03/09/20 09:12 Denies chest pain or sob. Exam Const: General: comfortable and no acute distress Neck: Neck: no JVD Carotids: no bruits Resp: Auscultation: clear to auscultation bilaterally, no crackles, no rales, no rhonchi and no wheezes Cardio: Rate: regular rate Rhythm: regular rhythm GI: Inspection: non-distended Neuro: Speech: normal speech Extrem: Right lower extremity: edema Left lower extremity: no edema Objective Data Vital Signs Vital Signs: Vital Signs - 24 hr 03/08/20 09:32 03/08/20 10:00 03/08/20 14:00 Temperature 97.7 F 97.8 F Pulse Rate 78 81 77 Respiratory Rate 20 20 Blood Pressure 128/55 L 144/64 H Pulse Oximetry 96 97 03/08/20 18:00 03/08/20 20:12 03/08/20 22:00 Temperature 98.8 F 99.1 F Pulse Rate 92 90 84 Respiratory Rate 22 H 20 Blood Pressure 145/66 H 151/63 H Pulse Oximetry 97 96 03/09/20 02:00 03/09/20 06:00 03/09/20 08:56 Temperature 98.1 F 97.5 F L Pulse Rate 73 72 72 Respiratory Rate 20 20 Blood Pressure 132/64 130/50 L Pulse Oximetry 94 95 Intake/Output Intake/Output: Intake & Output 03/06/20 03/07/20 03/08/20 03/09/20 23:59 23:59 23:59 23:59 Intake Total 3159.9 3080 2580 450 Output Total 2025 2200 2450 950 Balance 1134.9 880 130 -500 Meds/Results Medications: Active Medications Generic Name Dose Route Start Last Admin Trade Name Freq PRN Reason Stop Dose Admin Carvedilol 25 mg 03/07/20 09:00 03/09/20 08:56 Coreg PO 25 mg Q12HR KJ Administration Dextrose 12.5 gm 03/05/20 08:35 Dextrose 50% Syringe IV PUSH PRN PRN Hypoglycemia Protocol Glucagon 1 mg 03/05/20 08:35 Glucagon For Inj IM PRN PRN Hypoglycemia Protocol Glucose 15 gm 03/05/20 08:35 Glutose 15 PO PRN PRN Hypoglycemia Protocol Heparin Sodium (Porcine) 5,000 units 03/05/20 18:00 03/09/20 05:51 Heparin Sodium SUB-Q 5,000 units Q12H KJ Administration Dextrose 1,000 mls @ 100 mls/hr 03/05/20 08:35 Dextrose 5% 1,000 Ml IVPB PRN PRN Hypoglycemia Protocol Ceftriaxone Sodium/Dextrose 1 gm in 50 mls @ 100 mls/hr 03/08/20 14:00 03/08/20 16:49 Rocephin 1 Gm/D5w 50 Ml IVPB 03/31/20 14:01 Infused Q24H KJ In
[2020-03-09 10:00] VITALS: BP 146/70; PULSE 70; RESP 18; TEMP 36.2; O2SAT 98
--- NOTE | 2020-03-09 11:11 | PM.IMPN ---
Subjective Date/time seen: 03/09/20 11:11 Objective Data Vital Signs Vital Signs: Vital Signs - 24 hr 03/08/20 14:00 03/08/20 18:00 03/08/20 20:12 Temperature 97.8 F 98.8 F Pulse Rate 77 92 90 Respiratory Rate 20 22 H Blood Pressure 144/64 H 145/66 H Pulse Oximetry 97 97 03/08/20 22:00 03/09/20 02:00 03/09/20 06:00 Temperature 99.1 F 98.1 F 97.5 F L Pulse Rate 84 73 72 Respiratory Rate 20 20 20 Blood Pressure 151/63 H 132/64 130/50 L Pulse Oximetry 96 94 95 03/09/20 08:56 Temperature Pulse Rate 72 Respiratory Rate Blood Pressure Pulse Oximetry Intake/Output Intake/Output: Intake & Output 03/06/20 03/07/20 03/08/20 03/09/20 23:59 23:59 23:59 23:59 Intake Total 3159.9 3080 2580 450 Output Total 2024 2200 2450 950 Balance 1134.9 880 130 -500 Meds/Results Medications: Active Medications Generic Name Dose Route Start Last Admin Trade Name Freq PRN Reason Stop Dose Admin Carvedilol 25 mg 03/07/20 09:00 03/09/20 08:56 Coreg PO 25 mg Q12HR KJ Administration Dextrose 12.5 gm 03/05/20 08:35 Dextrose 50% Syringe IV PUSH PRN PRN Hypoglycemia Protocol Glucagon 1 mg 03/05/20 08:35 Glucagon For Inj IM PRN PRN Hypoglycemia Protocol Glucose 15 gm 03/05/20 08:35 Glutose 15 PO PRN PRN Hypoglycemia Protocol Heparin Sodium (Porcine) 5,000 units 03/05/20 18:00 03/09/20 05:51 Heparin Sodium SUB-Q 5,000 units Q12H KJ Administration Dextrose 1,000 mls @ 100 mls/hr 03/05/20 08:35 Dextrose 5% 1,000 Ml IVPB PRN PRN Hypoglycemia Protocol Ceftriaxone Sodium/Dextrose 1 gm in 50 mls @ 100 mls/hr 03/08/20 14:00 03/08/20 16:49 Rocephin 1 Gm/D5w 50 Ml IVPB 03/31/20 14:01 Infused Q24H KJ Infusion Insulin Aspart 2 - 5 units 03/05/20 12:00 03/09/20 08:10 Novolog SUB-Q Not Given TIDWM [facility] Protocol Insulin Glargine 20 units 03/09/20 09:06 Lantus SUB-Q DAILY KJ Saccharomyces Boulardii 250 mg 03/07/20 17:00 03/09/20 08:57 Florastor PO 250 mg BID KJ Administration Silver Nitrate 1 applic 03/06/20 09:00 03/09/20 08:58 Silvergel TOPICAL 1 applic DAILY KJ Administration Tramadol HCl 50 mg 03/05/20 17:02 03/08/20 20:07 Ultram PO 50 mg Q6H PRN Administration Pain Rated 4-6 Valsartan 160 mg 03/09/20 09:00 03/09/20 08:58 Diovan PO 160 mg QAM KJ Administration Radiology Results: ITS Impressions Chest X-Ray 03/05/20 10:36 IMPRESSION: No active cardiopulmonary disease Foot X-Ray 03/06/20 17:10 IMPRESSION: 1. Findings consistent with chronic neuropathic foot. 2. Large soft tissue ulceration. Soft tissue swelling. Labs Labs: Laboratory Results - last 24 hr 03/08/20 03/08/20 03/08/20 12:27 17:13 20:10 WBC RBC Hgb Hct MCV MCH MCHC RDW Plt Count MPV Immature Gran % (Auto) Neut % (Auto) Lymph % (Auto) [place] % (Auto) Eos % (Auto) Baso % (Auto) Lymph # (Auto) [place] # (Auto) Eos # (Auto) Baso # (Auto) Abs Immat Gran (auto) Absolute Neuts (auto) Absolute Nucleated RBC Nucleated RBC % Sodium Potassium Chloride Carbon Dioxide BUN Creatinine Estim Creat Clear Calc Estimated GFR Glucose POC Capillary Glucose 170 H 191 H 239 H Calcium 03/09/20 03/09/20 03/09/20 06:23 06:23 07:55 WBC 8.4 RBC 3.33 L Hgb 8.4 L Hct 26.4 L MCV 79.3 L MCH 25.2 L MCHC 31.8 L RDW 15.6 H Plt Count 346 MPV 9.7 Immature Gran % (Auto) 2.1 H Neut % (Auto) 69.9 Lymph % (Auto) 16.6 L [place] % (Auto) 9.3 H Eos % (Auto) 1.5 Baso % (Auto) 0.6 Lymph # (Auto) 1.40 [place] # (Auto) 0.8 H Eos # (Auto) 0.1 Baso # (Auto) 0.1 Abs Immat Gran (auto) 0.18 H Absolute Neuts (auto) 5.9 Absolute Nucleated RBC 0.0 Nucleated RBC %
--- NOTE | 2020-03-09 11:23 | PM.DS ---
DS: Summary Time Spent with Patient Time attestation: Total time spent providing and/or coordinating discharge services: Exam Narrative: Exam Narrative: HEENT: EOMI, PERRL, sclerae nonicteric, pharyngeal mucosa pink and intact NECK: No JVD CHEST: Clear to auscultation. Normal effort. HEART: NL S1/S2, regular, no murmur ABDOMEN: BS+, soft, nontender, no mass, no bruits EXTREMITIES: No cyanosis, edema, or clubbing NEUROLOGIC: CN intact and symmetric to inspection. MUSCULOSKELETAL: Tone and strength symmetric. PSYCH: Alert. Oriented to person, place, and time. DS: Data Data Completed and Pending Labs on day of discharge: Labs from last 24 hours 03/09/20 03/09/20 03/09/20 07:55 06:23 06:23 WBC 8.4 RBC 3.33 L Hgb 8.4 L Hct 26.4 L MCV 79.3 L MCH 25.2 L MCHC 31.8 L RDW 15.6 H Plt Count 346 MPV 9.7 Immature Gran % (Auto) 2.1 H Neut % (Auto) 69.9 Lymph % (Auto) 16.6 L [place] % (Auto) 9.3 H Eos % (Auto) 1.5 Baso % (Auto) 0.6 Lymph # (Auto) 1.40 [place] # (Auto) 0.8 H Eos # (Auto) 0.1 Baso # (Auto) 0.1 Abs Immat Gran (auto) 0.18 H Absolute Neuts (auto) 5.9 Absolute Nucleated RBC 0.0 Nucleated RBC % 0.0 Sodium 135 L Potassium 3.5 Chloride 99 Carbon Dioxide 30 BUN 12 Creatinine 0.70 Estim Creat Clear Calc 124 Estimated GFR > 60 Glucose 84 POC Capillary Glucose 71 Calcium 8.4 03/08/20 03/08/20 03/08/20 20:10 17:13 12:27 WBC RBC Hgb Hct MCV MCH MCHC RDW Plt Count MPV Immature Gran % (Auto) Neut % (Auto) Lymph % (Auto) [place] % (Auto) Eos % (Auto) Baso % (Auto) Lymph # (Auto) [place] # (Auto) Eos # (Auto) Baso # (Auto) Abs Immat Gran (auto) Absolute Neuts (auto) Absolute Nucleated RBC Nucleated RBC % Sodium Potassium Chloride Carbon Dioxide BUN Creatinine Estim Creat Clear Calc Estimated GFR Glucose POC Capillary Glucose 239 H 191 H 170 H Calcium Preliminary micro results at discharge 03/06/20 18:36 Wound Culture - Preliminary Foot Right 03/05/20 14:51 Blood Culture - Preliminary Blood 03/05/20 10:07 Blood Culture - Preliminary Blood Discharge Plan Discharge Consulting providers: Hernesto Romero ; Yinka Morton ; Jose Willson ; Marvin Swain ; Ruby Ryan ; Christine Perez ; Yoav Borrego ; Mathew Day ; Tanner Enamorado ; Arian Jacobo Discharging Clinician: Zeke Mckeon Patient Disposition: Home Health Service Activity: follow weight bearing status Discharge Instructions: Avoid weight bearing on foot ulcer. Per Care Coordination Patient will be going home today with Intravenous Rocephin 1 gram IV daily through March 31. Infusion company is [employer] . [facility] will deliver IV medications to patient's house. [facility] will be assisting with teaching about the infusion and managing IV MID line. [phone] RN please fax completed discharge instructions to Patient Instructions: Antibiotic Form, Chest Pain (GEN), Pain Management (DC), Chronic Wounds (DC), High Troponin Levels (GEN), COVID-19 (Coronavirus Disease 2019) (GEN) Stand Alone Forms: General Discharge Information Follow-up/Referrals: Jordin Fernandez DPM [Physician] - (Follow up with Dr. Fernandez as an outpatient for chronic diabetic foot ulcer. ) Discharge Medications: New ceftriaxone 1 gram Recon Soln 1 g IV Q24H Qty: 22 RF: 0 valsartan [Diovan] 160 mg Tablet 160 mg PO QAM Qty: 30 RF: 0 Saccharomyces boulardii [Florastor] 250 mg Capsule 250 mg PO BID Qty: 60 RF: 0 Silver-Sept 200 mcg/gram Gel 1 applic topical DAILY Qty: 15 RF: 0 Continued carvedilol 25 mg tablet 25 mg PO BID RF: 0 hydrocodone-acetaminophen 5-325 mg tablet 2 tab PO Q4H PRN (Reason: Pain (Scale Score 7-10)) RF: 0 aspirin
[2020-03-09] MEDS: LIDOCAINE HCL 1% LOCAL INJ 2 ML AMPUL 5 ML INFILTRATE (12:30)
[2020-03-09 13:15] LABS: Glucose Point of Care 169 (65-105)
[2020-03-09 14:00] VITALS: BP 135/50; PULSE 79; RESP 20; TEMP 36.4; O2SAT 98
--- NOTE | 2020-03-09 14:36 | WPDINFPN2 ---
Progress Note: A&P Assessment and Plan (1) Septic shock: Code(s): A41.9 - Sepsis, unspecified organism; R65.21 - Severe sepsis with septic shock Status: Acute Assessment and Plan: 1. 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 Improving. Meropenem susceptible, per [facility] lab. 2. Charcot foot 3. DM REC (Antibiotic # 5), ceftriaxone # 2/ 24 days through 03/31. Ok discharge, he has midline in place, see me in office Subjective Date/time seen: 03/09/20 14:36 Interval history: no complaints Exam Narrative: Exam Narrative: afebrile Const: General: no acute distress Extrem: Other: right foot and cintron with resolving erythema, Charcot foot same, no sinus tracts no tenderness Objective Data Vital Signs Vital Signs: Vital Signs - 24 hr 03/08/20 18:00 03/08/20 20:12 03/08/20 22:00 Temperature 37.1 C 37.3 C Pulse Rate 92 90 84 Respiratory Rate 22 H 20 Blood Pressure 145/66 H 151/63 H Pulse Oximetry 97 96 03/09/20 02:00 03/09/20 06:00 03/09/20 08:56 Temperature 36.7 C 36.4 C L Pulse Rate 73 72 72 Respiratory Rate 20 20 Blood Pressure 132/64 130/50 L Pulse Oximetry 94 95 Intake/Output Intake/Output: Intake & Output 03/06/20 03/07/20 03/08/20 03/09/20 23:59 23:59 23:59 23:59 Intake Total 3159.9 3080 2580 450 Output Total 2024 2200 2450 950 Balance 1134.9 880 130 -500 Meds/Results Medications: Active Medications Generic Name Dose Route Start Last Admin Trade Name Freq PRN Reason Stop Dose Admin Carvedilol 25 mg 03/07/20 09:00 03/09/20 08:56 Coreg PO 25 mg Q12HR KJ Administration Dextrose 12.5 gm 03/05/20 08:35 Dextrose 50% Syringe IV PUSH PRN PRN Hypoglycemia Protocol Glucagon 1 mg 03/05/20 08:35 Glucagon For Inj IM PRN PRN Hypoglycemia Protocol Glucose 15 gm 03/05/20 08:35 Glutose 15 PO PRN PRN Hypoglycemia Protocol Heparin Sodium (Porcine) 5,000 units 03/05/20 18:00 03/09/20 05:51 Heparin Sodium SUB-Q 5,000 units Q12H KJ Administration Dextrose 1,000 mls @ 100 mls/hr 03/05/20 08:35 Dextrose 5% 1,000 Ml IVPB PRN PRN Hypoglycemia Protocol Ceftriaxone Sodium/Dextrose 1 gm in 50 mls @ 100 mls/hr 03/08/20 14:00 03/08/20 16:49 Rocephin 1 Gm/D5w 50 Ml IVPB 03/31/20 14:01 Infused Q24H KJ Infusion Insulin Aspart 2 - 5 units 03/05/20 12:00 03/09/20 08:10 Novolog SUB-Q Not Given [facility] Protocol Insulin Glargine 20 units 03/09/20 09:06 Lantus SUB-Q DAILY KJ Saccharomyces Boulardii 250 mg 03/07/20 17:00 03/09/20 08:57 Florastor PO 250 mg BID KJ Administration Silver Nitrate 1 applic 03/06/20 09:00 03/09/20 08:58 Silvergel TOPICAL 1 applic DAILY KJ Administration Tramadol HCl 50 mg 03/05/20 17:02 03/08/20 20:07 Ultram PO 50 mg Q6H PRN Administration Pain Rated 4-6 Valsartan 160 mg 03/09/20 09:00 03/09/20 08:58 Diovan PO 160 mg QAM KJ Administration Radiology Results: ITS Impressions Chest X-Ray 03/05/20 10:36 IMPRESSION: No active cardiopulmonary disease Foot X-Ray 03/06/20 17:10 IMPRESSION: 1. Findings consistent with chronic neuropathic foot. 2. Large soft tissue ulceration. Soft tissue swelling. Labs Labs: Laboratory Results - last 24 hr 03/08/20 03/08/20 03/09/20 17:13 20:10 06:23 WBC 8.4 RBC 3.33 L Hgb 8.4 L Hct 26.4 L MCV 79.3 L MCH 25.2 L MCHC 31.8 L RDW 15.6 H Plt Count 346 MPV 9.7 Immature Gran % (Auto) 2.1 H Neut % (Auto) 69.9 Lymph % (Auto) 16.6 L [place] % (Auto) 9.3 H Eos % (Auto) 1.5 Baso % (Auto) 0.6 Lymph # (Auto) 1.40 [place] # (Auto) 0.8 H Eos # (Auto) 0.1 Baso # (Auto) 0.1 Abs Immat Gran (auto) 0.18 H Absolute Neuts (auto) 5.9 Absolute Nucleated RBC 0.0 Nucleated RBC % 0.0 Sodium [place]
--- NOTE | 2020-03-31 14:42 | PM.IMHP ---
H&P: HPI History of Present Illness Chief complaint: sepsis nstemi r/o covid Narrative: Mathew Benitez is a 64 year old male [facility] Past Medical History Medical History Anemia of chronic disease Charcot foot due to diabetes mellitus Right foot. Chronic wound of extremity Chronic right plantar diabetic foot ulcer, under the care of Jordin Fernandez DPM. CVA (cerebral vascular accident) with mild gait disturbance. Diabetic peripheral neuropathy Hepatitis C Completed treatment in 2016. Hypertension Insulin dependent type 2 diabetes mellitus Osteoarthritis Osteomyelitis Surgical History Surgical History History of cataract surgery History of cholecystectomy For gangrenous cholecystitis an abscess in October 2017. History of fusion of cervical spine History of laparoscopic adjustable gastric banding 2004. History of skin graft to right foot wound. History of total right hip replacement Family History Family History Father Family history of lung cancer Other Diabetes mellitus Family history of allergic disorder Family history of cardiovascular disease Family history of malignant neoplasm Hypertension Social History Social History Social History: The patient lives in his own home in [place]. He is a lifelong nonsmoker and denies alcohol abuse. He smokes marijuana on occasion. He designates his sister, Kendal Martinez, and his son Nhan Benitez as his surrogate decision makers and he wishes to be a full code. Smoking status: Never smoker Second hand tobacco smoke exposure: Yes Alcohol intake: never Drinks per week: 4 Substance use: never Substance use type: marijuana Gender identity (if verbalized by the patient): Male Spiritual care concerns: No Agree to blood products: Yes Meds Home Medications and Allergies Home Medications Medication Instructions Recorded Confirmed Type carvedilol 25 mg PO BID 02/16/20 03/05/20 History Janumet 1 tablet PO BID 03/05/20 03/05/20 History aspirin [Aspirin Low Dose] 81 mg PO DAILY 03/05/20 03/05/20 History hydrocodone-acetaminophen 2 tab PO Q4H PRN 03/05/20 03/05/20 History tramadol 50 mg PO Q6H PRN 03/05/20 03/05/20 History Saccharomyces boulardii [Florastor] 250 mg PO BID #60 cap 03/09/20 Rx ceftriaxone 1 g IV Q24H #22 ea 03/09/20 Rx silver [Silver-Sept] 1 applic TOPICAL DAILY #15 g 03/09/20 Rx valsartan [Diovan] 160 mg PO QAM #30 tablet 03/09/20 Rx Allergies Allergy/AdvReac Type Severity Reaction Status Date / Time No Known Allergies Allergy Verified 02/16/20 16:47 Assessment and Plan Additional Plan I was incorrectly consulted, the patients establised rehabilitation worker will be consulted. This was discussed with the patients nurse. She acknowledged and will notify me if a problem arises. Dr. Willson
== END 2020-03-09 17:00 | disposition home health service (06) | DRG 872 ==
LOC: ANHICU 03-06 14:51 → ANH3MEDSUR 03-07 02:16 → ANHICU 03-13 15:01
PROVIDERS: Family Medicine; Internal Medicine Critical Care Medicine; Internal Medicine Infectious Disease; Admitting Provider Family Medicine; PCP Internal Medicine; Visit Provider Internal Medicine
DX: A41.9 Sepsis, unspecified organism (principal); L97.415 Non-pressure chronic ulcer of right heel and midfoot with muscle involvement without evidence of necrosis; L03.115 Cellulitis of right lower limb; A52.16 Charcot's arthropathy (tabetic); E11.621 Type 2 diabetes mellitus with foot ulcer; B19.20 Unspecified viral hepatitis C without hepatic coma; I10 Essential (primary) hypertension; N18.3 Chronic kidney disease, stage 3 (moderate); I12.9 Hypertensive chronic kidney disease with stage 1 through stage 4 chronic kidney disease, or unspecified chronic kidney disease; E11.22 Type 2 diabetes mellitus with diabetic chronic kidney disease
CPT/HCPCS: 36415; 36569; 71045; 73630; 80048; 80053; 81001; 82565; 83036; 83605; 83735; 84100; 84484; 85025; 87040; 87070; 87205; 87635; 93005; 93306; A9270; C1751; J0696; J1644; J1815; J2543; J3370; J7040; L2116; U0003

== ENCOUNTER 2020-03-23 09:39 | Outpatient (RCR) | payer MEDICARE, OTHER, SELFPAY ==
[2020-03-16 12:31] LABS: Basophils Absolute Auto 0.1 K/mm3 (0.0-0.1); Basophils Percent Auto 0.5 % (0.2-1.2); Eosinophils Absolute Auto 0.1 K/mm3 (0-0.3); Eosinophils Percent Auto 0.5 % (0-4.4); Immature Granulocyte Absolute 0.12 K/mm3 (0.00-0.031); Lymphocytes Absolute Auto 1.21 K/mm3 (0.9-3.2); Mean Corpuscular Hemoglobin 24.6 pg (26-34); Mean Corpuscular Volume 79.2 fl (80-100); Mean Platelet Volume 9.2 fl (7.4-10.4); Monocytes Absolute Auto 0.7 K/mm3 (0.1-0.6); Monocytes Percent Auto 5.5 % (2.6-8.5); Neutrophils Percent Auto 82.5 % (45.5-73.1); Platelet Count Result 471 k/mm3 (150-375); Red Blood Count 3.66 M/mm3 (4.6-6.20); Red Cell Distribution Width 15.8 % (11.5-14.5); White Blood Count 12.1 K/mm3 (4.5-10.0)
[2020-03-16 13:28] LABS: Blood Urea Nitrogen 14 mg/dL (9-20); Calcium 8.8 mg/dL (8.4-10.2); Carbon Dioxide 26 mmol/L (22-30); Chloride 100 mmol/L (98-107); Estimated Glomerular Filt Rate > 60; Glucose 214 mg/dL (75-110); Sodium 133 mmol/L (137-145)
[2020-03-23 10:22] LABS: Basophils Absolute Auto 0.1 K/mm3 (0.0-0.1); Eosinophils Absolute Auto 0.1 K/mm3 (0-0.3); Eosinophils Percent Auto 1.5 % (0-4.4); Hematocrit 31.2 % (42.0-52.0); Hemoglobin 9.6 g/dL (14.0-18.0); Immature Granulocyte Absolute 0.05 K/mm3 (0.00-0.031); Immature Granulocyte Percent A 0.6 % (0-0.5); Lymphocytes Absolute Auto 1.46 K/mm3 (0.9-3.2); Mean Corpuscular HGB Conc 30.8 g/dl (32-36); Mean Corpuscular Hemoglobin 24.4 pg (26-34); Mean Corpuscular Volume 79.4 fl (80-100); Monocytes Absolute Auto 0.6 K/mm3 (0.1-0.6); Monocytes Percent Auto 7.5 % (2.6-8.5); Neutrophils Absolute Auto 6.2 K/mm3 (1.3-6.7); Neutrophils Percent Auto 72.4 % (45.5-73.1); Platelet Count Result 457 k/mm3 (150-375); Red Blood Count 3.93 M/mm3 (4.6-6.20); Red Cell Distribution Width 15.9 % (11.5-14.5); White Blood Count 8.6 K/mm3 (4.5-10.0)
[2020-03-23 11:45] LABS: Blood Urea Nitrogen 10 mg/dL (9-20); Calcium 8.7 mg/dL (8.4-10.2); Carbon Dioxide 28 mmol/L (22-30); Chloride 103 mmol/L (98-107); Estimated Glomerular Filt Rate > 60; Glucose 73 mg/dL (75-110); Potassium 4.1 mmol/L (3.4-5.0); Sodium 137 mmol/L (137-145)
== END 2020-06-14 23:59 | disposition home or self-care (01) ==
LOC: HOME HLTH 09:39
PROVIDERS: Visit Provider Internal Medicine Infectious Disease
DX: E11.621 Type 2 diabetes mellitus with foot ulcer (principal); L97.415 Non-pressure chronic ulcer of right heel and midfoot with muscle involvement without evidence of necrosis; L03.115 Cellulitis of right lower limb; Z79.2 Long term (current) use of antibiotics
CPT/HCPCS: 80048; 85025

== ENCOUNTER 2020-03-30 15:58 | Outpatient (RCR) | payer MEDICARE, OTHER, SELFPAY ==
[2020-03-30 16:17] LABS: Basophils Absolute Auto 0.1 K/mm3 (0.0-0.1); Basophils Percent Auto 0.6 % (0.2-1.2); Eosinophils Absolute Auto 0.2 K/mm3 (0-0.3); Eosinophils Percent Auto 2.4 % (0-4.4); Hematocrit 30.1 % (42.0-52.0); Hemoglobin 9.2 g/dL (14.0-18.0); Immature Granulocyte Absolute 0.04 K/mm3 (0.00-0.031); Immature Granulocyte Percent A 0.4 % (0-0.5); Lymphocytes Absolute Auto 1.39 K/mm3 (0.9-3.2); Lymphocytes Percent Auto 14.7 % (18.3-44.2); Mean Corpuscular HGB Conc 30.6 g/dl (32-36); Mean Corpuscular Hemoglobin 24.3 pg (26-34); Mean Corpuscular Volume 79.6 fl (80-100); Mean Platelet Volume 9.4 fl (7.4-10.4); Monocytes Absolute Auto 0.7 K/mm3 (0.1-0.6); Monocytes Percent Auto 7.8 % (2.6-8.5); Neutrophils Percent Auto 74.1 % (45.5-73.1); Platelet Count Result 334 k/mm3 (150-375); Red Blood Count 3.78 M/mm3 (4.6-6.20); Red Cell Distribution Width 16.5 % (11.5-14.5); White Blood Count 9.4 K/mm3 (4.5-10.0)
[2020-03-30 16:26] LABS: Blood Urea Nitrogen 15 mg/dL (9-20); Calcium 8.4 mg/dL (8.4-10.2); Carbon Dioxide 25 mmol/L (22-30); Chloride 102 mmol/L (98-107); Estimated Glomerular Filt Rate > 60; Glucose 131 mg/dL (75-110); Potassium 4.2 mmol/L (3.4-5.0); Sodium 135 mmol/L (137-145)
== END 2020-06-28 23:59 | disposition home or self-care (01) ==
LOC: HOME HLTH 15:58
PROVIDERS: Visit Provider Internal Medicine Infectious Disease
DX: E11.621 Type 2 diabetes mellitus with foot ulcer (principal); L97.415 Non-pressure chronic ulcer of right heel and midfoot with muscle involvement without evidence of necrosis; Z79.2 Long term (current) use of antibiotics
CPT/HCPCS: 80048; 85025; 86140

== ENCOUNTER 2020-04-18 11:27 | Outpatient (CLI) | payer MEDICARE, OTHER, SELFPAY ==
--- NOTE | ~2020-04-18 | US_ITS ---
EXAMINATION: US venous doppler LE RT EXAM DATE: 04/18/2020 12:04 INDICATION: Right leg pain and swelling. TECHNIQUE: Multiple grayscale, color flow and Doppler images of the right lower extremity deep venous system were obtained and reviewed. There is no prior study for comparison. FINDINGS: The right common femoral, femoral and profunda veins demonstrate normal color flow, respira tory variation, augmentation and compressibility. Compressibility, color flow confirmed within the r ight popliteal, posterior tibial, peroneal, and greater saphenous veins. There is a right inguinal l ymph node measuring 4.6 x 1.5 x 3.7 cm, without expected fatty hilum. IMPRESSION: 1. No right lower extremity deep venous thrombosis. 2. Right inguinal lymphadenopathy, could be reactive but given absence of fatty hilum, can't exclude lymphoma or other malignancy not excludable. CT abdomen pelvis can be obtained if indicated clinical ly. Reviewed, dictated and finalized at location B. IMPRESSION: 1. No right lower extremity deep venous thrombosis. 2. Right inguinal lymphadenopathy, could be reactive but given absence of fatt y hilum, can't exclude lymphoma or other malignancy not excludable. CT abdomen pelvis can be obtained if indicated clinically.
== END 2020-04-18 11:28 | disposition home or self-care (01) ==
LOC: ANHIMG 11:30
PROVIDERS: Visit Provider Nurse Practitioner Family
DX: M79.661 Pain in right lower leg (principal); M79.89 Other specified soft tissue disorders; R59.0 Localized enlarged lymph nodes
CPT/HCPCS: 93971

== ENCOUNTER 2020-04-27 06:36 | Outpatient (CLI) | payer MEDICARE, OTHER, SELFPAY ==
--- NOTE | ~2020-04-27 | CT_ITS ---
EXAMINATION: CT abdomen pelvis wo con EXAM DATE: 04/27/2020 07:01 INDICATION: Lymphadenopathy. TECHNIQUE: Spiral CT of the abdomen and pelvis was performed without contrast. Axial, coronal and s agittal images were reviewed. The dose-length product (DLP) for this examination was 1588.02 mGy-cm. The exposure was tailored according to patient size (auto mA exposure control), and iterative recon struction (ASIR) was used as additional dose reduction technique. There is no prior study for compar donald. FINDINGS: There are pathologically enlarged bilateral inguinal, right-sided iliac lymph nodes, with a larger right pelvic lymph node measuring 3.4 x 1.6 cm, a right inguinal lymph node measuring 2.5 x 1 .9 cm. If there has been no histologic correlation, consider ultrasound-guided right inguinal lymphad enopathy biopsy. No pathologically enlarged upper retroperitoneal lymph nodes. The liver, spleen, adrenal glands and pancreas are unremarkable. There are cholecystectomy clips. P ossible punctate left nephrolithiasis. No obstructive nephropathy. The prostate is unremarkable. Cor pora implants, reservoir. The bladder is unremarkable. The appendix is normal. Gastroesophageal junction banding. There is expected amount of colonic stoo l. Several colonic diverticula without adjacent inflammation. The heart is normal in size. There a re no pericardial or pleural effusions. The lung bases are unremarkable. There are no osteoblastic or osteolytic lesions identified. Right hip replacement. Advanced disc disease L3-4. IMPRESSION: Bilateral inguinal, right-sided iliac lymphadenopathy, could be lymphoma or other maligna ncy. Reviewed, dictated and finalized at location B. IMPRESSION: Bilateral inguinal, right-sided iliac lymphadenopathy, could be lym phoma or other malignancy.
== END 2020-04-27 06:37 | disposition home or self-care (01) ==
LOC: ANHIMG 06:38
PROVIDERS: PCP Nurse Practitioner Family; Visit Provider Nurse Practitioner Family
DX: R59.1 Generalized enlarged lymph nodes (principal); K40.20 Bilateral inguinal hernia, without obstruction or gangrene, not specified as recurrent
CPT/HCPCS: 74176

== ENCOUNTER 2020-09-29 12:30 | Emergency (ER) | payer MEDICARE, OTHER, SELFPAY ==
--- NOTE | ~2020-09-29 | CT_ITS ---
EXAMINATION: CTA chest PE protocol DATE: 09/29/2020 16:53 INDICATION: Chest pain and shortness of breath TECHNIQUE: Computed tomography (CT) pulmonary angiogram of the chest was performed with 100 mL Omnipa que-350 intravenous contrast. Additional 3D reconstructions utilizing coronal maximum intensity proje ction (MIP) were performed. Automated exposure control and iterative reconstruction technique were em ployed. The dose-length product was 936.41 mGy-cm. COMPARISON: None FINDINGS: Good contrast opacification of the pulmonary arteries. There is mild streak artifact from dense contr ast in the superior vena cava and right atrium. Mild scattered respiratory motion artifact which only mildly limits evaluation in some of the smaller subsegmental pulmonary arteries. There is a central filling defect in the posterior basilar pulmonary artery of the left lower lobe extending more distal ly into one of the subsegmental branches consistent with pulmonary embolism. Mild streaky atelectasis in the dependent lungs and along the left lower lung zone. Calcified lingular nodule and calcified l eft hilar lymph nodes consistent with old granulomatous disease. Heart size is normal. Atheroscleroti c coronary artery calcification. Small pericardial effusion. Thoracic aorta is normal in caliber wit h no dissection. No pathologically enlarged thoracic lymphadenopathy. Bilateral gynecomastia. Adjusta ble lap band in expected position. Cholecystectomy clips the gallbladder fossa. C6-7 anterior spinal fusion with plate and screw fixation. There are bridging osteophytes at multiple levels in the lower thoracic spine, consistent with diffuse idiopathic skeletal hyperostosis (DISH). Chronic mild anterio r wedging at T7. IMPRESSION: 1. Pulmonary embolism with low clot burden seen and a single segmental and subsegmental pulmonary art anahi of the left lower lobe. 2. Small pericardial effusion. Reviewed, dictated and finalized at location A. EYOR INSTALLER IMPRESSION: 1. Pulmonary embolism with low clot burden seen and a single segmental and subs egmental pulmonary artery of the left lower lobe. 2. Small pericardial effusion.
--- NOTE | ~2020-09-29 | XR_ITS ---
EXAMINATION: XR chest 2V EXAM DATE: 09/29/2020 13:33 INDICATION: Midline chest pain. TECHNIQUE: Frontal and lateral projections of the chest obtained and reviewed. Comparison is made to prior examination from 03/05/2020. FINDINGS: The lungs are clear. There are no pleural effusions. The cardiomediastinal silhouette is within normal limits. There is no pneumothorax suspected. The bones and soft tissues are unremarkab le. IMPRESSION: No acute cardiopulmonary findings. Reviewed, dictated and finalized at location A. 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
[2020-09-29 12:34] VITALS: BP 162/77; PULSE 80; RESP 18; TEMP 36.3; O2SAT 100
--- NOTE | 2020-09-29 12:37 | ECG_ITS ---
Measurements Intervals [place] Rate: 81 P: 31 [place]: 143 QRS: -28 QRSD: 85 T: 37 QT: 361 QTc: 420 Interpretive Statements SINUS RHYTHM LOW QRS VOLTAGE IN PRECORDIAL LEADS BORDERLINE R WAVE PROGRESSION, ANTERIOR LEADS INFERIOR INFARCT, AGE INDETERMINATE BASELINE ARTIFACT- II, III, AVR, AVL, AVF ABNORMAL ECG Electronically Signed On 09-29-2020 12:48:07 SENIOR PRODUCT MANAGER by Yinka Morton D.O.
[2020-09-29 12:48] LABS: Basophils Absolute Auto 0.1 K/mm3 (0.0-0.1); Basophils Percent Auto 0.4 % (0.2-1.2); Eosinophils Absolute Auto 0.1 K/mm3 (0-0.3); Eosinophils Percent Auto 0.4 % (0-4.4); Hematocrit 40.6 % (42.0-52.0); Hemoglobin 13.5 g/dL (14.0-18.0); Immature Granulocyte Absolute 0.05 K/mm3 (0.00-0.031); Immature Granulocyte Percent A 0.4 % (0-0.5); Lymphocytes Absolute Auto 1.03 K/mm3 (0.9-3.2); Lymphocytes Percent Auto 7.5 % (18.3-44.2); Mean Corpuscular HGB Conc 33.3 g/dl (32-36); Mean Corpuscular Hemoglobin 27.9 pg (26-34); Mean Corpuscular Volume 83.9 fl (80-100); Mean Platelet Volume 9.7 fl (7.4-10.4); Monocytes Absolute Auto 1.1 K/mm3 (0.1-0.6); Monocytes Percent Auto 8.2 % (2.6-8.5); Neutrophils Absolute Auto 11.5 K/mm3 (1.3-6.7); Neutrophils Percent Auto 83.1 % (45.5-73.1); Platelet Count Result 220 k/mm3 (150-375); Red Blood Count 4.84 M/mm3 (4.6-6.20); Red Cell Distribution Width 16.4 % (11.5-14.5); White Blood Count 13.8 K/mm3 (4.5-10.0)
[2020-09-29 12:56] LABS: Prothrombin Time 13.3 Seconds (11.1-14.7)
[2020-09-29 12:57] LABS: Partial Thromboplastin Time 27.5 SECONDS (22.3-36.8)
[2020-09-29 13:02] LABS: Anion Gap 5 mmol/L (8-16); Blood Urea Nitrogen 20 mg/dL (9-20); Calcium 8.8 mg/dL (8.4-10.2); Carbon Dioxide 32 mmol/L (22-30); Chloride 101 mmol/L (98-107); Estimated CRCL calculation 98 ml/min; Estimated Glomerular Filt Rate > 60; Glucose 102 mg/dL (75-110); Potassium 3.9 mmol/L (3.4-5.0); Sodium 138 mmol/L (137-145)
[2020-09-29 13:14] LABS: Troponin I < 0.012 ng/mL (0.000-0.034)
[2020-09-29 14:15] VITALS: BP 165/75; PULSE 88; PULSE 89; RESP 25; TEMP 37.7; O2SAT 100
--- NOTE | 2020-09-29 14:54 | ED.CHESTPAIN ---
HPI - Chest Pain General Chief Complaint: Chest Pain Stated Complaint: cp/sob Time Seen by Provider: 09/29/20 14:11 Source: patient Limitations: no limitations History of Present Illness HPI narrative: 64 years old white male came to the ED complaining of sternal sharp stabbing pain worse with breathing, better with changing position started this morning after waking up from sleep. Associated with shortness of breath. Patient report having sexual activity last night prior to go to bed. Patient denies any fever, chills, nausea, vomiting, COVID-19 exposure. Related Data Home Medications Medication Instructions Recorded Confirmed carvedilol 25 mg PO BID 02/16/20 03/05/20 Janumet 1 tablet PO BID 03/05/20 03/05/20 aspirin [Aspirin Low Dose] 81 mg PO DAILY 03/05/20 03/05/20 hydrocodone-acetaminophen 2 tab PO Q4H PRN 03/05/20 03/05/20 tramadol 50 mg PO Q6H PRN 03/05/20 03/05/20 Allergies Allergy/AdvReac Type Severity Reaction Status Date / Time No Known Allergies Allergy Verified 02/16/20 16:47 Review of Systems Review of Systems: Narrative: CONSTITUTIONAL: Denies fever, chills, or sweats. EYES: Denies visual changes, redness, or discharge. ENT: Denies rhinorrhea, congestion, sore throat, or otalgia. CARDIOVASCULAR: Denies chest pain, palpitations, or edema. RESPIRATORY: Sternal pain with shortness of breath GASTROINTESTINAL: Denies abdominal pain, nausea, vomiting, or diarrhea. GENITOURINARY: Denies dysuria or hematuria. SKIN: Denies rash or itching. MUSCULOSKELETAL: Denies back pain, joint pain, or myalgia. NEUROLOGIC: Denies headache, numbness, or weakness. PSYCHIATRIC: Denies anxiety or depression. ON LICENSE OF [facility] Past Medical History Medical History (Updated 09/29/20 @ 17:58 by Dick Bernardo MD) Anemia of chronic disease Charcot foot due to diabetes mellitus Right foot. Chronic wound of extremity Chronic right plantar diabetic foot ulcer, under the care of Jordin Fernandez DPM. CVA (cerebral vascular accident) with mild gait disturbance. Diabetic peripheral neuropathy Hepatitis C Completed treatment in 2017. Hypertension Insulin dependent type 2 diabetes mellitus Osteoarthritis Osteomyelitis Surgical History Surgical History History of cataract surgery History of cholecystectomy For gangrenous cholecystitis an abscess in October 2017. History of fusion of cervical spine History of laparoscopic adjustable gastric banding 2004. History of skin graft to right foot wound. History of total right hip replacement Family History Family History Father Family history of lung cancer Other Diabetes mellitus Family history of allergic disorder Family history of cardiovascular disease Family history of malignant neoplasm Hypertension Social History Social History Social History: The patient lives in his own home in [place]. He is a lifelong nonsmoker and denies alcohol abuse. He smokes marijuana on occasion. He designates his sister, Kendal Martinez, and his son Nhan Benitez as his surrogate decision makers and he wishes to be a full code. Smoking status: Never smoker Second hand tobacco smoke exposure: Yes Alcohol intake: never Drinks per week: 4 Substance use: never Substance use type: marijuana Gender identity (if verbalized by the patient): Male Sexual Orientation (if Verbalized by the Patient): Straight or Heterosexual Spiritual care concerns: No Agree to blood products: Yes Exam Narrative: Exam Narrative: General appearance: Well-developed, well-nourished Skin: Normal color Head: Normocephalic, nontraumatic Eyes: Clear conjunctiva ENT: Oropharynx normal, ears normal, nose normal Neck: Supple, nontender Chest and respiratory: Airway patent, no respiratory distress, no accessory muscle use, diffuse sternal tenderness,
[2020-09-29 15:05] LABS: D Dimer 0.99 ug/mL (<0.48)
[2020-09-29 15:07] LABS: Alveolar/Arterial O2 Gradient 34.2 mmHg; Base Excess ABG 0.5 mEq/l (+/-2.0); Device ROOM AIR; Fractional Inspired Oxygen 21 %; HCO3 ABG 24.2 mEq/l (22.0-26.0); Modified Allen's Test Pass; Oxygen Content ABG 17.4 %vol (16.0-22.0); Oxygen Saturation ABG 95.2 % (95.0-100.0); Oxyhemoglobin 93.7 % THb (90.0-100.0); PO2 ABG 72.4 mmHg (80.0-100.0); PO2 FiO2 Ratio Arterial Blood 3.45 %; Site Drawn LEFT RADIAL; Total Hemoglobin 13.2 g/dL (12.0-18.0); pH ABG 7.445 (7.350-7.450)
[2020-09-29 15:50] LABS: Troponin I < 0.012 ng/mL (0.000-0.034)
[2020-09-29 16:30] VITALS: BP 142/63; PULSE 92; RESP 26; TEMP 37.3; O2SAT 99
[2020-09-29 17:32] VITALS: BP 168/73; PULSE 95; RESP 30; TEMP 37.3; O2SAT 100; O2SAT 95
[2020-09-29 18:17] VITALS: BP 158/79; PULSE 91; RESP 24; TEMP 37.5; O2SAT 96
== END 2020-09-29 18:20 | disposition home or self-care (01) ==
PROVIDERS: Emergency Provider Emergency Medicine; PCP Nurse Practitioner Family
DX: I26.93 Single subsegmental thrombotic pulmonary embolism without acute cor pulmonale (principal); R07.2 Precordial pain; D63.8 Anemia in other chronic diseases classified elsewhere; E11.610 Type 2 diabetes mellitus with diabetic neuropathic arthropathy; E11.42 Type 2 diabetes mellitus with diabetic polyneuropathy; E11.621 Type 2 diabetes mellitus with foot ulcer; L97.519 Non-pressure chronic ulcer of other part of right foot with unspecified severity; I69.998 Other sequelae following unspecified cerebrovascular disease; R26.89 Other abnormalities of gait and mobility; Z79.84 Long term (current) use of oral hypoglycemic drugs; Z86.19 Personal history of other infectious and parasitic diseases; I10 Essential (primary) hypertension; M19.90 Unspecified osteoarthritis, unspecified site; Z98.49 Cataract extraction status, unspecified eye; Z96.641 Presence of right artificial hip joint; Z98.1 Arthrodesis status; Z79.82 Long term (current) use of aspirin; R94.31 Abnormal electrocardiogram [ECG] [EKG]
CPT/HCPCS: 36415; 36600; 71046; 71275; 80048; 82805; 84484; 85025; 85380; 85610; 85730; 93005; 99284; Q9967

== ENCOUNTER 2020-10-03 06:57 | Outpatient (NON) | payer MEDICARE, OTHER, SELFPAY ==
[2020-10-03 18:51] LABS: SARS-CoV-2 RNA PCR Negative
== END 2020-10-03 06:58 ==
LOC: ANHCOVIDDT 07:09
PROVIDERS: PCP Nurse Practitioner Family; Visit Provider Nurse Practitioner Family
DX: R07.9 Chest pain, unspecified (principal); R06.02 Shortness of breath; R50.9 Fever, unspecified; Z20.828 Contact with and (suspected) exposure to other viral communicable diseases
CPT/HCPCS: 87635; C9803; U0003

== ENCOUNTER 2020-10-05 12:12 | Outpatient (NON) | payer MEDICARE, OTHER, SELFPAY ==
[2020-10-06 00:27] LABS: SARS-CoV-2 RNA PCR Negative
== END 2020-10-05 12:13 ==
PROVIDERS: PCP Nurse Practitioner Family; Visit Provider Student in an Organized Health Care Education/Training Program
DX: R06.02 Shortness of breath (principal); R53.83 Other fatigue; Z20.828 Contact with and (suspected) exposure to other viral communicable diseases
CPT/HCPCS: 87635; C9803; U0003